=== PATIENT | female | born 1955 | race Caucasian/White ===

== ENCOUNTER 2016-04-01 11:24 | Inpatient (IN) ==
--- NOTE | 2016-04-01 11:36 | Emergency Department Note ---
Disposition Clinical Impression: Hypoxemia, History of hysterectomy for malignancy, Headache, Pulmonary embolus Disposition: Admitted As Inpatient Referrals: Raymon Rogel MD [Primary Care Provider] - Forms: ED Satisfaction Letter General Adult HPI - General Chief complaint: ED Shortness of Breath/Dyspnea Stated complaint: PARTHA, abd pain Time Seen by Provider: 04/01/16 11:35 Source: patient, family Limitations: no limitations - History of Present Illness HPI Narrative: 60-year-old female reports tot he Emergency department complaining of shortness of breath. She has had a cough runny nose and a sore throat as well. There is no history of coughing up blood leg swelling or pain or syncope. She describes chest pain when breathing in and out. The patient has a known history of malignancy/uterine, status post hysterectomy, as well as PE. She takes Xarelto. There is no history of bleeding. There is no history of fall injury or acute back pain. The patient describes abdominal pain which is generalized, there has been no vomiting or diarrhea. Definitively no trauma. She also complains of a headache, she has a history of chronic recurrent cephalgia. No neck stiffness rash or fever reported. No confusion or convulsions, no trouble walking talking hearing seeing or speaking. The patient denies any personal history of CAD CHF COPD or asthma. The patient does not usually require oxygen. She has become progressively more short of breath over the last several days. Onset (ago): day(s) Pain Scale: 10 - Related Data Home Medications Medication Instructions Recorded Confirmed Metoprolol [Lopressor] 50 mg PO BID 11/30/14 01/29/16 TraZODone 50 mg PO HS 11/30/14 01/29/16 Citalopram [CeleXA] 20 mg PO DAILY 06/05/15 01/29/16 Previous Rx's Medication Instructions Recorded Acetaminophen/Butalbital/Caffe 1 each PO Q6HR PRN #30 tablet 01/29/16 [Fioricet] Handicap Placard 1 each .ROUTE DAILY #1 each 01/29/16 Rivaroxaban [Xarelto] 1 tab PO HS #30 tablet 01/29/16 Allergies Allergy/AdvReac Type Severity Reaction Status Date / Time No Known Allergies Allergy Verified 04/01/16 11:33 All systems ED: reviewed and negative except as stated. 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 Absent: scleral icterus, conjunctival injection, nystagmus, miosis, mydriasis - ENT ENT exam: normal exam, normal oropharynx, mucous membranes moist, TM's normal bilaterally, normal external ear exam - Neck Neck exam: Present: normal inspection, full ROM, trachea midline - Chest Chest inspection: Present: symmetric chest wall rise. Absent: tenderness - Respiratory Respiratory exam: Present: wheezes, prolonged expiratory phase. Absent: respiratory distress, accessory muscle use - Cardiovascular Cardiovascular exam: Present: regular rate, normal rhythm - Abdominal Exam Abdominal exam: Present: soft, Non-Tender. Absent: tenderness, distention, guarding, rebound, rigidity, normal bowel sounds, pulsatile mass - Extremities Exam Extremities exam: Present: normal inspection, full ROM, normal capillary refill. Absent: tenderness, pedal edema, joint swelling, calf tenderness - Expanded Lower Extremity Exam Lower leg exam: Absent: Homans' sign Neurovascular/Tendon exam: Present: normal capillary refill. Absent: motor deficit, sensory deficit, tendon deficit - Back Exam Back exam: Present: normal inspection, full ROM. Absent: tenderness, CVA tenderness (R), CVA tenderness (L), vertebral tenderness - Neurological Exam Neurological exam: Present: alert, oriented X3, CN II-XII intact. Absent: motor sensory deficit - Psychiatric Psychiatric exam: Present: normal affect - Skin Skin exam: Present: warm, dry, intact, normal color. Absent: rash, cyanosis, diaphoresis, erythema, pallor, mottled Course Vital Signs Temperature 98.0 F 04/01/16 11:29 Pulse Rate 82 04/01/16 11:29 Respiratory Rate 22 04/01/16 11:29 Blood Pressure 145/43 04/01/16 11:29 O2 Sat by Pulse Oximetry 89 L 04/01/16 11:29 Temperature 98.0 F 04/01/16 11:29 Pulse Rate 66 04/01/16 12:00 Respiratory Rate 18 04/01/16 12:00 Blood Pressure 109/70 04/01/16 12:00 O2 Sat by Pulse Oximetry 97 04/01/16 12:00 Oxygen Delivery Oxygen Delivery Nasal Cannula Medical Decision Making - MDM Narrative Medical decision making narrative: The patient does not require oxygen, she was initial O2 sat of 89%. The patient was giving a breathing treatment, her oxygen saturation did rise but remained persistently in the 91-93% range. Solu-Medrol Levaquin and a second DuoNeb were ordered. The radiologist called and describes what could be a small PE. The patient is currently taking anticoagulant medication, she has not coughed up any blood. Based on her underlying comorbidities including malignancy, acute hypoxemia, persistent wheezing that is posttreatment, and possible PE, I thought the patient sustained a hospital be evaluated and treated further. I discussed the case with the hospitalist fiberglass insulation installer. - Lab Data Lab results reviewed: Yes I reviewed the patient's lab results. Result diagrams: 04/01/16 11:50 04/01/16 11:50 Lab Results 04/01/16 04/01/16 04/01/16 Range/Units 11:50 11:50 11:50 WBC 9.9 (4.3-11.1) K/mcL RBC 5.03 H (3.82-4.97) M/mcL Hgb 16.2 H (11.5-15.4) g/dL Hct 48.1 H (35.3-44.9) % MCV 95.6 (83.0-100.0) fL MCH 32.2 (28.0-33.3) pg MCHC 33.7 (31.6-35.5) g/dL RDW 12.8 (11.5-14.5) % Plt Count 228 (140-400) K/mcL MPV 9.3 L (9.4-12.4) fL Immature Gran % 0.5 (0-4) % Seg Neutrophils % 71.0 % Lymphocytes % 20.1 % Monocytes % 5.9 % Eosinophils % 2.2 % Basophils % 0.3 % Neutrophils # 7.0 (1.6-8.9) K/mcL Lymphocytes # 2.0 (0.6-4.6) K/mcL Monocytes # 0.6 (0.0-1.3) K/mcL Eosinophils # 0.2 (0.0-0.6) K/mcL Basophils # 0.0 (0.0-0.2) K/mcL PT 12.3 H (9.4-12.1) Seconds INR 1.1 APTT 29.4 (26.0-36.0) Seconds D-Dimer 361 (0-500) ng/mLFEU Sodium 138 (136-145) mEq/L Potassium 4.1 (3.5-4.5) mEq/L Chloride 103 (98-109) mEq/L Carbon Dioxide 25 (19-29) mEq/L BUN 12 (7-20) mg/dL Creatinine 0.79 (0.57-1.11) mg/dL Est GFR ( Amer) > 60 (> 60) Est GFR (Non-Af Amer) > 60 (> 60) BUN/Creatinine Ratio 15 (6-26) Glucose 115 H (70-99) mg/dL Calculated Osmolality 287 (280-300) Lactic Acid (0.5-2.2) mmol/L Calcium 9.1 (8.6-10.8) mg/dL Troponin I (0-0.03) ng/mL C-Reactive Protein 56 H (Less than 5) mg/L B-Natriuretic Peptide (0-100) pg/mL Lipase 21 (8-78) Units/L 04/01/16 04/01/16 04/01/16 Range/Units 11:50 11:50 11:50 WBC (4.3-11.1) K/mcL RBC (3.82-4.97) M/mcL Hgb (11.5-15.4) g/dL Hct (35.3-44.9) % MCV (83.0-100.0) fL MCH (28.0-33.3) pg MCHC (31.6-35.5) g/dL RDW (11.5-14.5) % Plt Count (140-400) K/mcL MPV (9.4-12.4) fL Immature Gran % (0-4) % Seg Neutrophils % % Lymphocytes % % Monocytes % % Eosinophils % % Basophils % % Neutrophils # (1.6-8.9) K/mcL Lymphocytes # (0.6-4.6) K/mcL Monocytes # (0.0-1.3) K/mcL Eosinophils # (0.0-0.6) K/mcL Basophils # (0.0-0.2) K/mcL PT (9.4-12.1) Seconds INR APTT (26.0-36.0) Seconds D-Dimer (0-500) ng/mLFEU Sodium (136-145) mEq/L Potassium (3.5-4.5) mEq/L Chloride (98-109) mEq/L Carbon Dioxide (19-29) mEq/L BUN (7-20) mg/dL Creatinine (0.57-1.11) mg/dL Est GFR ( Amer) (> 60) Est GFR (Non-Af Amer) (> 60) BUN/Creatinine Ratio (6-26) Glucose (70-99) mg/dL Calculated Osmolality (280-300) Lactic Acid 2.0 (0.5-2.2) mmol/L Calcium (8.6-10.8) mg/dL Troponin I 0.00 (0-0.03) ng/mL C-Reactive Protein (Less than 5) mg/L B-Natriuretic Peptide 24 (0-100) pg/mL Lipase (8-78) Units/L - Radiology Data Radiology results reviewed: Yes I reviewed the patient's radiology results.
[2016-04-01] MEDS ORDERED: methylPREDNISolone 125 MG/2 ML VIAL IVP ONE (11:45)
[2016-04-01] MEDS ORDERED: Ipratropium/Albuterol Neb 3 ML IH ONE ×2 (11:45→13:59)
[2016-04-01 12:03] LABS: Basophils % 0.3 %; Eosinophils # 0.2 K/mcL (0.0-0.6); Eosinophils % 2.2 %; Hematocrit 48.1 % (35.3-44.9); Hemoglobin 16.2 g/dL (11.5-15.4); Immature Granulocytes % 0.5 % (0-4); Lymphocytes % 20.1 %; Mean Corpuscular HGB Conc 33.7 g/dL (31.6-35.5); Mean Corpuscular Hemoglobin 32.2 pg (28.0-33.3); Mean Corpuscular Volume 95.6 fL (83.0-100.0); Mean Platelet Volume 9.3 fL (9.4-12.4); Monocytes # 0.6 K/mcL (0.0-1.3); Monocytes % 5.9 %; Platelet Count 228 K/mcL (140-400); Red Blood Count 5.03 M/mcL (3.82-4.97); Red Cell Distribution Width 12.8 % (11.5-14.5)
[2016-04-01 12:11] LABS: INR 1.1; Prothrombin Time 12.3 Seconds (9.4-12.1)
[2016-04-01 12:14] LABS: Activated Partial Thrombo Time 29.4 Seconds (26.0-36.0)
[2016-04-01 12:16] LABS: BUN/Creatinine Ratio 15 (6-26); Blood Urea Nitrogen 12 mg/dL (7-20); C-Reactive Protein 56 mg/L (Less than 5); Calcium 9.1 mg/dL (8.6-10.8); Carbon Dioxide 25 mEq/L (19-29); Chloride 103 mEq/L (98-109); Glucose 115 mg/dL (70-99); Lipase 21 Units/L (8-78); Osmolality,Calculated 287 (280-300); Potassium 4.1 mEq/L (3.5-4.5); Sodium 138 mEq/L (136-145); eGFR For African Americans > 60 (> 60); eGFR For Non-African Americans > 60 (> 60)
[2016-04-01] MEDS ORDERED: Levofloxacin 750 MG/150 ML 750 MG/150 ML BAG IVPB ONE (13:59)
--- NOTE | 2016-04-01 14:21 | Internal Med History&Physical ---
Date of Encounter: 04/01/16 Time of Encounter: 14:18 Assessment and Plan (1) Pulmonary embolus Current visit: Yes Status: Acute Patient with clinical and tomographic findings consistent with pulmonary embolism. She has been on chronic anticoagulation with xarelto, according to the patient, she is compliant with medications at home. Additionally, she has an underlying COPD with hypoxemia and she is a chronic active smoker. She has a history of malignancy for which she received treatment and she also had a pulmonary embolism back in 2011, she has been on anticoagulations since then. Will admit the patient for further management, we will continue with oxygen therapy. Will give anticoagulation, for now we will switch to full dose of Lovenox. We will obtain an echocardiogram for evaluation of right ventricular function. The patient is morbidly obese, she states that he snores loudly, she has never received any workup for sleep apnea, I would not be surprised if there is a component of obstructive sleep apnea as well. Smoking cessation has been strongly advised, will provide nicotine replacement therapy. The plan of care was discussed in detail with the patient. D/W patient. Qualifiers: Pulmonary embolism type: other Chronicity: acute Acute cor pulmonale presence: without acute cor pulmonale Qualified Code(s): I26.99 - Other pulmonary embolism without acute cor pulmonale (2) Hypoxemia Current visit: Yes Status: Acute (3) COPD (chronic obstructive pulmonary disease) Current visit: No Status: Acute Qualifiers: COPD type: unspecified COPD Qualified Code(s): J44.9 - Chronic obstructive pulmonary disease, unspecified (4) History of hysterectomy for malignancy Current visit: Yes Status: Acute Internal Medicine - H&P: HPI Chief complaint: Back pain, shortness of breath. Admitted From: Emergency Dept Plans for Post Hospital Care: Home History of present illness: Ms. Bashir is a 60 year old female with past medical history of pulmonary embolism back in 2011, history of uterine cancer status post treatment without evidence of disease, chronic active smoker, COPD on long-term oxygen therapy. Patient states that since 2 days before [place] has been complaining of persistent back pain associated with shortness of breath and dry cough. The patient presented to our emergency department today because she thought she may have a blood clot in her lungs. She denies fever, chills, chest pain, rash, loss of consciousness, dysuria. The patient is on chronic anticoagulation with xarelto. Initial workup in the emergency department was significant for a CT angios of the chest consistent with a small pulmonary embolism. Additionally, her oxygen saturation was 89% upon admission. When I evaluated the patient on a chest pain she was feeling short of breath and hypoxia ablation was 91% with subsequent oxygen via nasal cannula. The patient has been admitted for further management and workup. She denies melena, hemoptysis, any signs of bleeding. Patient denies history of recent travel, leg swelling, trauma, hospitalizations. Past Med Surg Social Fam HX - Past Medical History Medical history: cancer, COPD, DVT, GI bleed, hypertension, pulmonary embolus, other Psychiatric history: depression - Past Surgical History Surgical History: hysterectomy, other - Social History Smoking Status: Current some day smoker Smokeless Tobacco Status: No Alcohol use: none Drug use: none - Family History Mother Hx Family Cardiac Disorders: Yes (HYPERTENSION.) Internal Medicine - H&P: Meds Metoprolol [Lopressor] 50 mg PO BID 11/30/14 [History] TraZODone 50 mg PO HS 11/30/14 [History] Citalopram [CeleXA] 20 mg PO DAILY 06/05/15 [History] Acetaminophen/Butalbital/Caffe [Fioricet] 1 each PO Q6HR PRN #30 tablet [Rx] Handicap Placard 1 each .ROUTE DAILY #1 each 01/29/16 [Rx] Rivaroxaban [Xarelto] 1 tab PO HS #30 tablet 01/29/16 [Rx] Allergies No Known Allergies Allergy (Verified 04/01/16 11:33) All Systems PM: A 10-system review of systems was performed and is negative for pertinent findings except as documented above in the HPI. - Constitutional Constitutional: as per HPI, no chills, no fever(s), no night sweats - EENT Eyes: as per HPI, no change in vision, no discharge, no pain, no photophobia Ears: as per HPI, no ear discharge, no ear pain, no tinnitus Nose, mouth and throat: as per HPI, no dysphagia, no nasal discharge, no neck pain, no sore throat - Breasts Breasts: as per HPI - Cardiovascular Cardiovascular ROS IM: as per HPI, dyspnea on exertion, no chest pain, no diaphoresis, no dyspnea, no lightheadedness, no palpitations, no syncope - Respiratory Respiratory: as per HPI, cough, dyspnea, dyspnea on exertion, no wheezing, no excessive phlegm production - Gastrointestinal Gastrointestinal: as per HPI, no abdominal pain, no diarrhea, no hematemesis, no hematochezia, no melena, no nausea, no vomiting - Genitourinary Genitourinary: as per HPI, no change in urinary stream, no dysuria, no flank pain, no hematuria Menstruation: as per HPI - Musculoskeletal Musculoskeletal ROS IM: as per HPI, no numbness, no tingling - Integumentary Integumentary IM: as per HPI, no rash, no unusual bruising - Neurological Neurological ROS: as per HPI, no confusion, no convulsions, no focal weakness, no numbness, no tingling, no tremor(s) - Psychiatric Psychiatric: as per HPI - Endocrine Endocrine IM: as per HPI - Hematologic/Lymphatic Hematologic/Lymphatic: as per HPI, no easy bruising - Allergic/Immunologic Allergic/Immunologic: as per HPI - Constitutional Vitals: Temp Pulse Resp BP Pulse Ox 98.0 F 66 18 109/70 97 04/01/16 11:29 04/01/16 12:00 04/01/16 12:00 04/01/16 12:00 04/01/16 12:00 General appearance: Present: mild distress, A&O X 3, obese - Head Head exam: Present: atraumatic, normocephalic - Eye Eye exam: Present: PERRL, conjuntiva pink, sclera anicteric Pupils: Present: PERRL - Neck Neck exam general surgery: Present: supple, trachea midline. Absent: lymphadenopathy - Respiratory Respiratory exam: Present: decreased breath sounds, rhonchi. Absent: accessory muscle use, rales, wheezes - Cardiovascular Cardiovascular exam: Present: RRR, +S1, +S2. Absent: diastolic murmur, gallop, rubs, systolic murmur - GI/Abdominal GI/Abdominal exam: Present: normal bowel sounds, soft, no peritoneal signs. Absent: distended, tenderness - Extremities Exam Extremities exam: Present: warm, radial pulses palpable and symetrical. Absent : calf tenderness, cyanotic, pedal edema - Neurological Exam Neurological exam: Present: CN II-XII intact, oriented X3, no focal deficits. Absent: pronater drift, facial droop, speech deficit - Skin Skin exam: Present: dry, intact Internal Med - H&P Results - Labs CBC & Chem 7: 04/01/16 11:50 04/01/16 11:50 Labs: Short CBC 04/01/16 Range/Units 11:50 WBC 9.9 (4.3-11.1) K/mcL Hgb 16.2 H (11.5-15.4) g/dL Hct 48.1 H (35.3-44.9) % Plt Count 228 (140-400) K/mcL Neutrophils # 7.0 (1.6-8.9) K/mcL BMP 04/01/16 11:50 Sodium 138 Potassium 4.1 Chloride 103 Carbon Dioxide 25 BUN 12 Creatinine 0.79 Glucose 115 H Calcium 9.1 Cardiac Enzymes 04/01/16 Range/Units 11:50 Troponin I 0.00 (0-0.03) ng/mL - Impressions ITS Impressions Chest CTA 04/01/16 11:46 IMPRESSION: No large or central pulmonary embolism. Question of a small PE within a left lower lobe subsegmental pulmonary artery. Results of this examination were verbally communicated to Dr. Kaplan at 1:55 p.m. on 04/01/2016. D/ / 04/01/2016 13:54:33 Gregory Higginbotham MD / [facility] Interpreting Provider: Gregory Higginbotham MD Head CT 04/01/16 11:50 IMPRESSION: No acute intracranial abnormality. D/ / Gustavo Hill MD / Gustavo Hill MD Interpreting Provider: Gustavo Hill MD
[2016-04-01] MEDS ORDERED: Naloxone 0.4 MG/ML INJ IVP PRN (14:27)
[2016-04-01] MEDS ORDERED: Ondansetron 4 MG/2 ML VIAL IVP PRN (14:27)
[2016-04-01] MEDS ORDERED: Albuterol 2.5 MG/3 ML NEBULIZER IH PRN (14:27)
[2016-04-01] MEDS ORDERED: *HR* HYDROcodone/Acet 5/325 mg TABLET PO PRN (14:27)
[2016-04-01 15:16] LABS: Bilirubin,Urine Negative (Negative); Blood,Urine Negative (Negative); Clarity,Urine Clear (Clear); Color,Urine Yellow (Yellow); Glucose,Urine (UA) Normal (Normal); Ketones,Urine Negative (Negative); Leukocyte Esterase,Urine Negative (Negative); Nitrite,Urine Negative (Negative); Protein,Urine Negative (Neg-Trace); Specific Gravity,Urine > 1.030 (1.010-1.025); Urobilinogen,Urine Normal (Normal)
[2016-04-01] MEDS: Nicotine 21 MG PATCH.TD24 TD SCH (15:50)
[2016-04-01] MEDS: *HR* Morphine 2 MG/ML SYRINGE IVP PRN ×2 (15:50→20:11)
[2016-04-01] MEDS: Ipratropium/Albuterol Neb 3 ML IH SCH ×2 (16:23→22:12)
[2016-04-01] MEDS: predniSONE 20 MG TABLET PO SCH (18:25)
[2016-04-01] MEDS: *HR* Enoxaparin 100 MG/ML SYRINGE SQ SCH (18:26)
[2016-04-01] MEDS: traZODone 50 MG TABLET PO SCH (20:11)
[2016-04-01] MEDS: Famotidine 20 MG TABLET PO SCH (20:11)
[2016-04-01] MEDS: Lactulose Oral Soln 20 GM/30 ML UDC PO SCH (20:12)
[2016-04-02] MEDS: *HR* Morphine 2 MG/ML SYRINGE IVP PRN ×4 (02:10→21:00)
[2016-04-02] MEDS: Ipratropium/Albuterol Neb 3 ML IH SCH ×4 (05:11→22:15)
[2016-04-02] MEDS: *HR* Enoxaparin 100 MG/ML SYRINGE SQ SCH ×2 (05:18→17:39)
[2016-04-02 07:18] LABS: Basophils % 0.2 %; Hematocrit 43.6 % (35.3-44.9); Hemoglobin 14.8 g/dL (11.5-15.4); Immature Granulocytes % 0.5 % (0-4); Lymphocytes # 1.1 K/mcL (0.6-4.6); Lymphocytes % 10.2 %; Mean Corpuscular HGB Conc 33.9 g/dL (31.6-35.5); Mean Corpuscular Hemoglobin 32.8 pg (28.0-33.3); Mean Corpuscular Volume 96.7 fL (83.0-100.0); Mean Platelet Volume 9.6 fL (9.4-12.4); Monocytes # 0.5 K/mcL (0.0-1.3); Monocytes % 4.8 %; Neutrophils # 9.2 K/mcL (1.6-8.9); Platelet Count 235 K/mcL (140-400); Red Blood Count 4.51 M/mcL (3.82-4.97); Red Cell Distribution Width 12.7 % (11.5-14.5); Segmented Neutrophils % 84.3 %
[2016-04-02 07:19] LABS: Prothrombin Time 11.2 Seconds (9.4-12.1)
[2016-04-02 07:22] LABS: Activated Partial Thrombo Time 30.7 Seconds (26.0-36.0)
[2016-04-02 07:41] LABS: Alanine Aminotransferase 18 Units/L (0-55); Albumin 3.2 g/dL (3.5-5.0); Albumin/Globulin Ratio 0.8 (1.1-2.2); Alkaline Phosphatase 85 Units/L (38-126); Aspartate Amino Transferase 11 Units/L (5-34); BUN/Creatinine Ratio 19 (6-26); Bilirubin,Total 0.3 mg/dL (0.2-1.2); Blood Urea Nitrogen 16 mg/dL (7-20); Calcium 9.3 mg/dL (8.6-10.8); Carbon Dioxide 19 mEq/L (19-29); Chloride 106 mEq/L (98-109); Chol/HDL Ratio 4.1 (0-4.9); Cholesterol 168 mg/dL (< 200); Globulin 3.9 g/dL (2.4-3.5); Glucose 197 mg/dL (70-99); HDL Cholesterol 41 mg/dL (40-59); LDL Cholesterol,Calculated 91 mg/dL (0-99); Magnesium 1.9 mg/dL (1.6-2.6); Osmolality,Calculated 293 (280-300); Potassium 4.1 mEq/L (3.5-4.5); Sodium 138 mEq/L (136-145); Total Protein 7.1 g/dL (6.0-8.3); Triglycerides 180 mg/dL (< 150); eGFR For African Americans > 60 (> 60); eGFR For Non-African Americans > 60 (> 60)
[2016-04-02] MEDS: Levofloxacin 750 MG/150 ML 750 MG/150 ML BAG IVPB SCH ×2 (08:28→08:49)
[2016-04-02] MEDS: Famotidine 20 MG TABLET PO SCH ×2 (08:29→21:01)
[2016-04-02] MEDS: predniSONE 20 MG TABLET PO SCH (08:29)
[2016-04-02] MEDS: Nicotine 21 MG PATCH.TD24 TD SCH (08:30)
[2016-04-02] MEDS: Lactulose Oral Soln 20 GM/30 ML UDC PO SCH ×2 (08:31→21:01)
[2016-04-02] MEDS: Azithromycin 500 MG in D5% in Water 250 ML IVPB SCH (12:05)
--- NOTE | 2016-04-02 16:45 | Internal Med Progress Note ---
Date of Encounter: 04/02/16 Time of Encounter: 11:45 - Assessment and plan (1) Pulmonary embolism Current Visit: No Status: Resolved Assessment and plan: Was on Xarelto and is compliant. Dose recently decreased. Continue current anticoagulant. Will need to start new PO med (? Xarelto at higher dose). Qualifiers: Pulmonary embolism type: other Chronicity: acute Acute cor pulmonale presence: without acute cor pulmonale Qualified Code(s): I26.99 - Other pulmonary embolism without acute cor pulmonale (2) Acute respiratory failure with hypoxemia Current Visit: No Status: Acute Assessment and plan: Continue oxygen supplementation. (3) COPD (chronic obstructive pulmonary disease) Current Visit: No Status: Acute Assessment and plan: Continue abx, steroids, aerosols. Qualifiers: COPD type: COPD with acute exacerbation Qualified Code(s): J44.1 - Chronic obstructive pulmonary disease with (acute) exacerbation (4) Hypertension Current Visit: Yes Status: Acute Assessment and plan: Continue home meds. Qualifiers: Hypertension type: essential hypertension Qualified Code(s): I10 - Essential (primary) hypertension - Subjective Interval history: Ms. Bashir is currently admitted for presumed recurrent acute PE and acute exac COPD. She remains moderate to high risk due to the potential of worsening cardiac and pulmonary status. Ms. Bashir is resting comfortably at this time. Continues to have discomfort in lower L chest. Dyspnea present. Coughing a lot - congested. No GI symptoms. No new issues at this time. - Constitutional Vitals: Temp Pulse Resp BP Pulse Ox 98.1 F 92 16 127/79 98 04/02/16 15:35 04/02/16 15:35 04/02/16 16:22 04/02/16 15:35 04/02/16 16:22 General appearance: Present: mild distress, A&O X 3, obese, answers questions appropriately - Head Head exam: Present: normocephalic - Eye Eye exam: Present: EOMI, conjuntiva pink - ENT ENT exam: Present: mucous membranes moist - Respiratory Respiratory exam: Present: rhonchi, wheezes - Cardiovascular Cardiovascular exam: Present: distant heart sounds, RRR. Absent: tachycardia - GI/Abdominal GI/Abdominal exam: Present: soft. Absent: mass, tenderness - Extremities Exam Extremities exam: Present: pedal edema, warm - Neurological Exam Neurological exam: Present: alert, oriented X3, no focal deficits - Skin Skin exam: Present: dry, normal color, warm. Absent: rash Internal Medicine: Result - Labs CBC & Chem 7: 04/02/16 06:56 04/02/16 06:36 Labs: Short CBC 04/02/16 Range/Units 06:56 WBC 10.9 (4.3-11.1) K/mcL Hgb 14.8 (11.5-15.4) g/dL Hct 43.6 (35.3-44.9) % Plt Count 235 (140-400) K/mcL Neutrophils # 9.2 H (1.6-8.9) K/mcL BMP 04/02/16 06:36 Sodium 138 Potassium 4.1 Chloride 106 Carbon Dioxide 19 BUN 16 Creatinine 0.83 Glucose 197 H Calcium 9.3 Cardiac Enzymes 04/01/16 04/01/16 Range/Units 16:38 21:49 Troponin I 0.00 0.00 (0-0.03) ng/mL Liver Function 04/02/16 Range/Units 06:36 Total Bilirubin 0.3 (0.2-1.2) mg/dL AST 11 (5-34) Units/L ALT 18 (0-55) Units/L Alkaline Phosphatase 85 (38-126) Units/L Albumin 3.2 L (3.5-5.0) g/dL - ABG Interpretation ABG results: PT/INR, D-dimer PT 11.2 Seconds (9.4-12.1) 04/02/16 06:36 D-Dimer 361 ng/mLFEU (0-500) 04/01/16 11:50 Consult Discharge Plan - Plan Referrals: Raymon Rogel MD [Primary Care Provider] -
[2016-04-02] MEDS: methylPREDNISolone 125 MG/2 ML VIAL IVP SCH ×2 (17:39→23:04)
[2016-04-02] MEDS ORDERED: Melatonin 3 MG TABLET PO ONE (20:36)
[2016-04-02] MEDS: traZODone 50 MG TABLET PO SCH (21:01)
[2016-04-03] MEDS: Ipratropium/Albuterol Neb 3 ML IH SCH ×4 (04:23→22:05)
[2016-04-03 05:26] LABS: Hematocrit 45.4 % (35.3-44.9); Hemoglobin 14.9 g/dL (11.5-15.4); Mean Corpuscular HGB Conc 32.8 g/dL (31.6-35.5); Mean Corpuscular Hemoglobin 32.2 pg (28.0-33.3); Mean Corpuscular Volume 98.1 fL (83.0-100.0); Mean Platelet Volume 9.8 fL (9.4-12.4); Platelet Count 251 K/mcL (140-400); Red Blood Count 4.63 M/mcL (3.82-4.97); Red Cell Distribution Width 12.6 % (11.5-14.5)
[2016-04-03 05:37] LABS: BUN/Creatinine Ratio 30 (6-26); Blood Urea Nitrogen 24 mg/dL (7-20); Calcium 9.2 mg/dL (8.6-10.8); Carbon Dioxide 27 mEq/L (19-29); Chloride 105 mEq/L (98-109); Glucose 143 mg/dL (70-99); Magnesium 2.4 mg/dL (1.6-2.6); Osmolality,Calculated 297 (280-300); Sodium 140 mEq/L (136-145); eGFR For African Americans > 60 (> 60); eGFR For Non-African Americans > 60 (> 60)
[2016-04-03] MEDS: *HR* Enoxaparin 100 MG/ML SYRINGE SQ SCH ×2 (05:53→16:58)
[2016-04-03 06:07] LABS: Potassium 5.1 mEq/L (3.5-4.5)
[2016-04-03] MEDS: *HR* Morphine 2 MG/ML SYRINGE IVP PRN ×4 (07:43→21:19)
--- NOTE | 2016-04-03 09:26 | ECHO - Doppler Report ---
Echocardiogram Name: Maylein Bashir Date of Study: 04/02/2016 Date: 1955 Ht: 63.0 in Medical Record#: [id number] Age: 60 Wt: 220.0 lb Gender: Female BSA: 2.01 Order #: [id number] Location: [facility] Room #: [id number] Reading Physician: John Boston MD, [facility] Senior Water/Wastewater Engineer: OVI Fontana, S Ordering Physician: Jose Teixeira DO Primary Physician: Raymon Rogel MD Indications: recurrent PE Impressions: Normal left ventricular size and systolic function, LVEF 65-70%. Moderate left ventricular diastolic dysfunction. Right ventricle is suboptimally visualized. It appears mildly dilated in some views. RV systolic function is normal. Mild-moderately dilated left atrium. No significant valvular dysfunction. Unable to estimate RVSP due to inadequate TR jet. Left Ventricular Wall Motion: Rest Echo Findings All wall segments showed normal motion. Findings: Study Quality * Suboptimal echo windows. ECG Findings * Normal sinus rhythm. Left Ventricle * Normal left ventricular size and systolic function, LVEF 65-70%. * Normal LV wall thickness. * Moderate left ventricular diastolic dysfunction. Right Ventricle * Right ventricle is suboptimally visualized. It appears mildly dilated in some views. RV systolic function is normal. Left Atrium * Mild-moderately dilated left atrium. Right Atrium * Normal right atrial size. Aorta * Normally sized aortic root. Pericardium * There is no pericardial effusion present. IVC * The IVC is not dilated. Aortic Valve * Aortic valve not well visualized. Appears trileaflet. * No aortic stenosis. * No aortic regurgitation. Mitral Valve * Normal mitral valve structure. * No mitral stenosis. * Trace mitral regurgitation. Tricuspid Valve * Tricuspid valve not well visualized. * No tricuspid stenosis. * Trace tricuspid regurgitation. * Unable to estimate RVSP due to inadequate TR jet. Pulmonic Valve * Pulmonic valve not well visualized. * No pulmonic stenosis. * Trace pulmonic regurgitation. History Hypertension History of Smoking Years 48 Packs 0.2 06/05/2015 a Previous Echo was performed. Measurements: BP: 126/ 69 2D Normal Values RVIDd: 3.60 cm IVSd: 1.00 cm 0.6 - 1.0 cm LVIDd: 4.50 cm 3.7 - 5.6 cm LVPWd: 1.00 cm 0.6 - 1.1 cm LVIDs: 2.50 cm 1.5 - 3.6 cm AO: 2.80 cm < 4.0 cm LA volume: 76 Mitral Valve Peak E:1.11 m/sec Peak A:1.28 m/sec E/A Ratio:0.9 Updated by John Boston MD, [facility] on 04/03/2016 9:16:49 AM electronically signed on 04/03/2016 9:22:31 AM with status of Final Wall Motion Cantor: 1=Normal, 2=Hypokinesis, 3=Akinesis, 4=Dyskinesis, 5=Aneurysmal, 6=Hyperkinetic, X=Not Visualized (Blank)=Missing
[2016-04-03] MEDS: Famotidine 20 MG TABLET PO SCH ×2 (12:03→20:47)
[2016-04-03] MEDS: Nicotine 21 MG PATCH.TD24 TD SCH (12:04)
[2016-04-03] MEDS: methylPREDNISolone 125 MG/2 ML VIAL IVP SCH ×2 (12:04→16:58)
[2016-04-03] MEDS: Lactulose Oral Soln 20 GM/30 ML UDC PO SCH ×2 (12:05→20:46)
[2016-04-03] MEDS: Azithromycin 500 MG in D5% in Water 250 ML IVPB SCH (13:55)
--- NOTE | 2016-04-03 18:17 | Internal Med Progress Note ---
Date of Encounter: 04/03/16 Time of Encounter: 10:00 - Assessment and plan (1) Pulmonary embolism Current Visit: No Status: Resolved Assessment and plan: Doing OK on IV heparin drip. Will plan on restarting PO Xarelto but anticipate will need heme consult. Qualifiers: Pulmonary embolism type: other Chronicity: acute Acute cor pulmonale presence: without acute cor pulmonale Qualified Code(s): I26.99 - Other pulmonary embolism without acute cor pulmonale (2) Acute respiratory failure with hypoxemia Current Visit: No Status: Acute Assessment and plan: Continue oxygen supplementation. (3) COPD (chronic obstructive pulmonary disease) Current Visit: No Status: Acute Assessment and plan: Doing better with aggressive pulmonary treatment. Qualifiers: COPD type: COPD with acute exacerbation Qualified Code(s): J44.1 - Chronic obstructive pulmonary disease with (acute) exacerbation (4) Hypertension Current Visit: Yes Status: Acute Assessment and plan: Continue home meds. Qualifiers: Hypertension type: essential hypertension Qualified Code(s): I10 - Essential (primary) hypertension - Subjective Interval history: Ms. Bashir is currently admitted for presumed recurrent acute PE and acute exac COPD. She remains moderate to high risk due to the potential of worsening cardiac and pulmonary status. Ms. Bashir slept better last night. She is still having pain in her left side but medicine helps. She is breathing better since yesterday. Denies GI symptoms. No fever or chills. - Constitutional Vitals: Temp Pulse Resp BP Pulse Ox 98.3 F 60 16 121/76 94 L 04/03/16 15:00 04/03/16 15:00 04/03/16 16:33 04/03/16 15:00 04/03/16 16:33 General appearance: Present: mild distress, A&O X 3, obese, answers questions appropriately - Head Head exam: Present: normocephalic - Eye Eye exam: Present: conjuntiva pink - ENT ENT exam: Present: mucous membranes moist - Respiratory Respiratory exam: Present: decreased breath sounds, CTAB - Cardiovascular Cardiovascular exam: Present: RRR. Absent: tachycardia - GI/Abdominal GI/Abdominal exam: Present: normal bowel sounds, soft, tenderness. Absent: mass - Extremities Exam Extremities exam: Present: warm. Absent: pedal edema - Neurological Exam Neurological exam: Present: alert, oriented X3 - Psychiatric Psychiatric exam: Present: normal affect, normal mood - Skin Skin exam: Present: warm. Absent: rash Internal Medicine: Result - Labs CBC & Chem 7: 04/03/16 04:50 04/03/16 04:50 Labs: Short CBC 04/03/16 Range/Units 04:50 WBC 13.4 H (4.3-11.1) K/mcL Hgb 14.9 (11.5-15.4) g/dL Hct 45.4 H (35.3-44.9) % Plt Count 251 (140-400) K/mcL BMP 04/03/16 04:50 Sodium 140 Potassium 5.1 H D Chloride 105 Carbon Dioxide 27 BUN 24 H Creatinine 0.80 Glucose 143 H Calcium 9.2 - ABG Interpretation ABG results: PT/INR, D-dimer PT 11.2 Seconds (9.4-12.1) 04/02/16 06:36 D-Dimer 361 ng/mLFEU (0-500) 04/01/16 11:50 Consult Discharge Plan - Plan Referrals: Raymon Rogel MD [Primary Care Provider] -
[2016-04-03] MEDS ORDERED: Melatonin 3 MG TABLET PO ONE (20:45)
[2016-04-03] MEDS: traZODone 50 MG TABLET PO SCH (20:47)
[2016-04-04] MEDS: methylPREDNISolone 125 MG/2 ML VIAL IVP SCH ×3 (00:20→16:08)
[2016-04-04] MEDS: *HR* Morphine 2 MG/ML SYRINGE IVP PRN ×5 (01:09→21:20)
[2016-04-04] MEDS: Ipratropium/Albuterol Neb 3 ML IH SCH ×4 (03:48→22:31)
[2016-04-04] MEDS: *HR* Enoxaparin 100 MG/ML SYRINGE SQ SCH (06:10)
[2016-04-04 06:38] LABS: BUN/Creatinine Ratio 26 (6-26); Blood Urea Nitrogen 21 mg/dL (7-20); Carbon Dioxide 22 mEq/L (19-29); Chloride 104 mEq/L (98-109); Glucose 153 mg/dL (70-99); Osmolality,Calculated 292 (280-300); Potassium 4.6 mEq/L (3.5-4.5); Sodium 138 mEq/L (136-145); eGFR For African Americans > 60 (> 60); eGFR For Non-African Americans > 60 (> 60)
[2016-04-04] MEDS: Famotidine 20 MG TABLET PO SCH ×2 (08:22→21:20)
[2016-04-04] MEDS: Lactulose Oral Soln 20 GM/30 ML UDC PO SCH ×2 (08:22→21:20)
[2016-04-04] MEDS: Nicotine 21 MG PATCH.TD24 TD SCH (08:23)
--- NOTE | 2016-04-04 09:23 | Electrocardiograph Report ---
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
[2016-04-04] MEDS: Azithromycin 500 MG in D5% in Water 250 ML IVPB SCH (10:55)
--- NOTE | 2016-04-04 13:11 | Internal Med Progress Note ---
<Justin Nunes - Last Filed: 04/04/16 13:20> Date of Encounter: 04/04/16 Time of Encounter: 10:00 - Assessment and plan (1) Pulmonary embolus Current Visit: Yes Status: Acute Assessment and plan: 60/ F with hx of Uterine cancer, PEs on Xarelto presented with chest pain and sob. CTA showed PE. Patient was started on heparin drip and transitioned to lovenox. Heme was consulted for recommendation on anticoagulation as patient did not want to be started on lovenox as outpatient treatment. [facility] recommended Apixaban 5mg BID. Patient will be transitioned off of heparin to Apixaban. Qualifiers: Pulmonary embolism type: other Chronicity: acute Acute cor pulmonale presence: without acute cor pulmonale Qualified Code(s): I26.99 - Other pulmonary embolism without acute cor pulmonale (2) Hypertension Current Visit: Yes Status: Acute Assessment and plan: Controlled. Continue home meds. Qualifiers: Hypertension type: essential hypertension Qualified Code(s): I10 - Essential (primary) hypertension (3) Acute respiratory failure with hypoxemia Current Visit: No Status: Acute Assessment and plan: Resolved. (4) COPD (chronic obstructive pulmonary disease) Current Visit: No Status: Acute Assessment and plan: Doing better with aggressive pulmonary treatment. Continue oxygen supplementation, duoneb, solumedrol and azithromycin. Qualifiers: COPD type: COPD with acute exacerbation Qualified Code(s): J44.1 - Chronic obstructive pulmonary disease with (acute) exacerbation - Subjective Interval history: Patient admitted to sob today, otherwise no new complaints. No acute overnight events. - Constitutional Vitals: Temp Pulse Resp BP Pulse Ox 98.1 F 57 18 124/68 94 L 04/04/16 07:00 04/04/16 07:00 04/04/16 11:14 04/04/16 07:00 04/04/16 11:14 General appearance: Present: mild distress, A&O X 3, obese, answers questions appropriately - Respiratory Respiratory exam: Present: CTAB. Absent: accessory muscle use, rales, rhonchi, wheezes - Cardiovascular Cardiovascular exam: Present: RRR, +S1, +S2. Absent: diastolic murmur, gallop, rubs, systolic murmur - GI/Abdominal GI/Abdominal exam: Present: normal bowel sounds, soft, no peritoneal signs. Absent: distended, tenderness - Extremities Exam Extremities exam: Present: warm, radial pulses palpable and symetrical. Absent : calf tenderness, cyanotic, pedal edema - Psychiatric Psychiatric exam: Absent: agitated, anxious Internal Medicine: Result - Labs CBC & Chem 7: 04/03/16 04:50 04/04/16 05:02 Labs: BMP 04/04/16 05:02 Sodium 138 Potassium 4.6 H Chloride 104 Carbon Dioxide 22 BUN 21 H Creatinine 0.82 Glucose 153 H Calcium 9.0 - ABG Interpretation ABG results: PT/INR, D-dimer PT 11.2 Seconds (9.4-12.1) 04/02/16 06:36 D-Dimer 361 ng/mLFEU (0-500) 04/01/16 11:50 Consult Discharge Plan - Plan Referrals: Raymon Rogel MD [Primary Care Provider] - <Jose Teixeira - Last Filed: 04/04/16 18:35> Date of Encounter: 04/04/16 - Assessment and plan (1) Pulmonary embolism Current Visit: No Status: Resolved Qualifiers: Pulmonary embolism type: other Chronicity: acute Acute cor pulmonale presence: without acute cor pulmonale Qualified Code(s): I26.99 - Other pulmonary embolism without acute cor pulmonale (2) Acute respiratory failure with hypoxemia Current Visit: No Status: Acute (3) COPD (chronic obstructive pulmonary disease) Current Visit: No Status: Acute Qualifiers: COPD type: COPD with acute exacerbation Qualified Code(s): J44.1 - Chronic obstructive pulmonary disease with (acute) exacerbation (4) Hypertension Current Visit: Yes Status: Acute Qualifiers: Hypertension type: essential hypertension Qualified Code(s): I10 - Essential (primary) hypertension - Constitutional Vitals: Temp Pulse Resp BP Pulse Ox 98.3 F 53 18 134/79 95 04/04/16 15:00 04/04/16 15:00 04/04/16 16:06 04/04/16 15:00 04/04/16 16:06 Internal Medicine: Result - Labs CBC & Chem 7: 04/03/16 04:50 04/04/16 05:02 Labs: BMP 04/04/16 05:02 Sodium 138 Potassium 4.6 H Chloride 104 Carbon Dioxide 22 BUN 21 H Creatinine 0.82 Glucose 153 H Calcium 9.0 - ABG Interpretation ABG results: PT/INR, D-dimer PT 11.2 Seconds (9.4-12.1) 04/02/16 06:36 D-Dimer 361 ng/mLFEU (0-500) 04/01/16 11:50 - Attending Attestation I examined this patient and my medical decision-making was reviewed with the Resident Physician. I agree with the documented findings, disposition and treatment plan as described except to the extent set forth below. Ms. Bashir is currently admitted for acute exac COPD and acute PE. She remains moderate to high risk due to potential for respiratory decompensation. Ms. Bashir just had a large bowel movement and is walking to bathroom with less dyspnea. Less CP now. No cough. No diarrhea. Exam Alert. Comfortable Heart reg Lungs diminished. No edema I/P 1. Acute PE 2. Acute exac COPD Further diagnoses and plan as above.
[2016-04-04] MEDS: APIXABAN 5 MG TABLET PO SCH ×2 (16:56→21:20)
--- NOTE | 2016-04-04 18:08 | Oncology Inp Consult Note ---
Date of Encounter: 04/04/16 Time of Encounter: 12:00 Assessment and Plan (1) Pulmonary embolus Status: Acute Assessment and plan: The Patient Is Compliant Xarelto, Was Symptomatic. She Has Fairly Improved Currently Taking Lovenox We Discussed Anticoagulation Options of Continuing Care Weight Heparin Which Patient Does Not Want to Do at Home. Alternatively she can be started on eliquis BID. She had hx GI bleed underwent colonoscopy by Dr Montana and anticoag dose was subsequently reduced. She denies any bleeding issues currently. Uterine cancer early stage s/p surgery in without any recurrence in scans in 08/16 Echo report reviewed mild LA dil, no clots, nl LVEF Plan of care discussed with her in detail. Imaging data and lab works reviewed with patient. Qualifiers: Pulmonary embolism type: other Chronicity: acute Acute cor pulmonale presence: without acute cor pulmonale Qualified Code(s): I26.99 - Other pulmonary embolism without acute cor pulmonale - Data of Consult Requesting Physician: Jose Teixeira DO Primary Care Provider: Raymon Rogel MD - Consult Narrative Reason for consult: pe History of present illness: Ms. Bashir is a 60 year old female with medical history significant for history of DVT, history of pulmonary embolism, history of uterine cancer status post a complete hysterectomy in 2013 in remission, patient was initiated on Coumadin which she did not want to continue severely switched to Xarelto. Patient developed a clot in her Xarelto was dose reduced. She was then put on regular doses Xarelto patient reports compliance with that until recently when she developed chest pain and cough. She reports cold like symptoms and congestion for a week or so ago. She otherwise reports compliance with Xarelto she might have taken a tablet different time. Shortness of breath had improved with oxygen supplementation. 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 Her CT scan of the chest from 12:2015 it showed a large central the patient has a small pulmonary embolism within the left lower lobe subsegmental pulmonary artery. CT scan of the abdomen from August 2015 did not show any recurrence. Patient denies any history of easy bruising or bleeding. 14 point review of systems is otherwise negative. Past Med Surg Social Fam HX - Past Medical History Medical history: cancer, COPD, DVT, GI bleed, hypertension, pulmonary embolus, other Psychiatric history: depression - Past Surgical History Surgical History: hysterectomy, other - Social History Smoking Status: Current some day smoker Smokeless Tobacco Status: No Alcohol use: none Drug use: none - Family History Mother Hx Family Cardiac Disorders: Yes (HYPERTENSION.) Medications and Allergies Metoprolol [Lopressor] 50 mg PO BID 11/30/14 [History] TraZODone 50 mg PO HS 11/30/14 [History] Citalopram [CeleXA] 20 mg PO DAILY 06/05/15 [History] Rivaroxaban [Xarelto] 10 mg PO HS 04/01/16 [History] Allergies No Known Allergies Allergy (Verified 04/01/16 11:33) Review of systems: as in HPI Oncology - Exam - Constitutional Vitals: Temp Pulse Resp BP Pulse Ox 98.3 F 53 18 134/79 95 04/04/16 15:00 04/04/16 15:00 04/04/16 16:06 04/04/16 15:00 04/04/16 16:06 General appearance: obese - Head Head exam: Present: atraumatic, normal inspection - Eye Eye exam: Present: sclera anicteric - ENT ENT exam: Present: mucous membranes moist - Neck Neck exam: Present: full ROM, normal inspection - Respiratory Respiratory exam: Present: CTAB - Cardiovascular Cardiovascular exam: Present: +S1, +S2 - GI/Abdominal GI/Abdominal exam: Present: normal bowel sounds, soft - Extremities Exam Additional comments: trace edema, NT - Neurological Exam Neurological exam: Present: alert, oriented X3 - Psychiatric Psychiatric exam: Present: normal mood - Skin Skin exam: Present: normal color Oncology - Results - Labs Labs: [facility] 04/04/16 05:02 Sodium 138 Potassium 4.6 H Chloride 104 Carbon Dioxide 22 BUN 21 H Creatinine 0.82 Glucose 153 H Calcium 9.0 - Imaging and Cardiology CT scan - chest Status: image reviewed by me Consult Discharge Plan - Plan Referrals: Raymon Rogel MD [Primary Care Provider] -
[2016-04-04] MEDS: traZODone 50 MG TABLET PO SCH (21:20)
[2016-04-05] MEDS: methylPREDNISolone 125 MG/2 ML VIAL IVP SCH ×2 (00:55→09:03)
[2016-04-05] MEDS: Ipratropium/Albuterol Neb 3 ML IH SCH ×4 (03:07→22:01)
[2016-04-05] MEDS: *HR* Morphine 2 MG/ML SYRINGE IVP PRN ×2 (04:47→09:04)
[2016-04-05] MEDS: Famotidine 20 MG TABLET PO SCH ×2 (09:03→22:56)
[2016-04-05] MEDS: APIXABAN 5 MG TABLET PO SCH ×2 (09:03→22:56)
[2016-04-05] MEDS: Lactulose Oral Soln 20 GM/30 ML UDC PO SCH ×2 (09:04→22:55)
[2016-04-05] MEDS: Nicotine 21 MG PATCH.TD24 TD SCH (09:04)
--- NOTE | 2016-04-05 09:11 | Discharge Summary ---
<Justin Nunes - Last Filed: 04/05/16 18:36> Date of Encounter: 04/05/16 Time of Encounter: 09:07 - Discharge Diagnosis (1) Pulmonary embolus Priority: Primary Status: Acute Qualifiers: Pulmonary embolism type: other Chronicity: acute Acute cor pulmonale presence: without acute cor pulmonale Qualified Code(s): I26.99 - Other pulmonary embolism without acute cor pulmonale (2) Hypertension Priority: Secondary Status: Acute Qualifiers: Hypertension type: essential hypertension Qualified Code(s): I10 - Essential (primary) hypertension (3) Acute respiratory failure with hypoxemia Priority: Secondary Status: Acute (4) COPD (chronic obstructive pulmonary disease) Priority: Secondary Status: Acute Qualifiers: COPD type: COPD with acute exacerbation Qualified Code(s): J44.1 - Chronic obstructive pulmonary disease with (acute) exacerbation - Discharge Medications Prescriptions: Albuterol Sulfate [Albuterol Inhaler] 2 puff IH Q4HR PRN 90 Days PRN Reason: Shortness Of Breath Albuterol Neb [Proventil Neb] 2.5 mg IH Q2H PRN 90 Days PRN Reason: Shortness Of Breath/Wheezing Apixaban [Eliquis] 5 mg PO BID #60 tablet Azithromycin [Zithromax] 500 mg PO DAILY #3 tablet GuaiFENesin ER [Mucinex] 1,200 mg PO BID #60 tbbp.12hr PredniSONE [Prednisone] 10 mg PO TAPER #10 tab.ds.pk Home Medications: Metoprolol [Lopressor] 50 mg PO BID 11/30/14 [History] TraZODone 50 mg PO HS 11/30/14 [History] Citalopram [CeleXA] 20 mg PO DAILY 06/05/15 [History] Albuterol Neb [Proventil Neb] 2.5 mg IH Q2H PRN 90 Days 04/05/16 [Rx] Albuterol Sulfate [Albuterol Inhaler] 2 puff IH Q4HR PRN 90 Days 04/05/16 [Rx] Apixaban [Eliquis] 5 mg PO BID #60 tablet 04/05/16 [Rx] Azithromycin [Zithromax] 500 mg PO DAILY #3 tablet 04/05/16 [Rx] GuaiFENesin ER [Mucinex] 1,200 mg PO BID #60 tbbp.12hr 04/05/16 [Rx] PredniSONE [Prednisone] 10 mg PO TAPER #10 tab.ds.pk 04/05/16 [Rx] Allergies/Adverse Reactions: Allergies No Known Allergies Allergy (Verified 04/01/16 11:33) Procedures/tests Complete & Pending: Procedures Performed prior 72 hours Category Date Time Status EV echocardiogram Routine Y 04/02/16 12:25 Completed Date of admission: 04/01/16 14:27 Primary care physician: Raymon Rogel MD Consults: 04/04/16 08:26 Consult to Oncology Hematology [CONS] Routine Consulting Provider: Omayra Pineda Reason for Consult: 60/F hx of uterine cancer is on xarelto for previous PEs. Painilesh is admitted for PE. We would like recommendation for anticoagulation. Currently on heparin drip. SHe sees Dr. Ojeda outpatient. Call Completed: Yes 04/04/16 10:46 Consult to Last Model Department Supervisor [CONS] Routine Reason for SW Consult: Jevon marte 04/02/16 11:27 Consult to Nurse Navigator [CONS] Routine Comment: Discharging clinician: Justin Nunes Anticipated date of discharge: 04/05/16 - Patient Status Disposition: Home, Self-Care Overall status at discharge: patient is not back to baseline - Discharge Instructions Follow Up With: Raymon Rogel MD [Primary Care Provider] - Eb Ordaz MD [Partnered Physician] - (changed patients anticoagulation from Xarelto to eliquis. ) - Diet and Activity Activity: increase activity as tolerated Diet: advance to your usual diet Hospital course: Ms. Bashir is a 60 year old female hx of uterine cancer s/p treatment, Tobacco abuse, COPD on 2L O2 at home and PE presented with CC of back pain that started two days before yaritza, sob, cough. She was worried she had another blood clot. She was currently being anticoagulated with Xarelto and followed by Dr. Ordaz outpatient. She denied missing doses. CT Angio Chest showed small pulmonary embolism. Patient was treated with full dose lovenox inpatient. An echocardiogram was obtained which showed no R. Heart strain. Her SOB and pain improved over the course of her stay. She was supplemented with oxygen, steroids , nebulizer, and azithromycin for COPD exacerbation. Hematology was consulted for advice on future anticoagulation. They recommended starting patient on eliquis. Patient was switched to eliquis and tolerated it well. Today she had no complaints of sob, chest pain. She had a mild headache. Patient is ambulating well w/o assistance, has good oral intake. She is medically stable for discharge. Plan will be to follow up with DR. Ordaz and PCP within next seven days. Patient will be discharged on prescriptions for albuterol inhaler, nebulizer, and prednisone taper and continuation of abx for additional three days. - Time Spent with Patient Total time spent providing and/or coordinating discharge services: - Constitutional Vitals: Temp Pulse Resp BP Pulse Ox 97.9 F 53 14 161/82 94 L 04/05/16 07:09 04/05/16 07:09 04/05/16 07:09 04/05/16 07:09 04/05/16 07:09 General appearance: Present: mild distress, A&O X 3, obese, answers questions appropriately - Head Head exam: Present: atraumatic, normocephalic - Eye Eye exam: Present: EOMI, PERRL, conjuntiva pink, sclera anicteric - Neck Neck exam general surgery: Present: supple, trachea midline. Absent: lymphadenopathy - Respiratory Respiratory exam: Present: decreased breath sounds, wheezes (mild basilar ). Absent: accessory muscle use, rales, rhonchi - Cardiovascular Cardiovascular exam: Present: RRR, +S1, +S2. Absent: diastolic murmur, gallop, rubs, systolic murmur - GI/Abdominal GI/Abdominal exam: Present: normal bowel sounds, soft, no peritoneal signs. Absent: distended, tenderness - Extremities Exam Extremities exam: Present: warm, radial pulses palpable and symetrical. Absent : calf tenderness, cyanotic, pedal edema - Neurological Exam Neurological exam: Present: CN II-XII intact, oriented X3, no focal deficits. Absent: pronater drift, facial droop, speech deficit - Skin Skin exam: Present: dry, intact <Diann,Cr P - Last Filed: 04/05/16 18:59> Date of Encounter: 04/05/16 Date of admission: 04/01/16 14:27 Primary care physician: Raymon Rogel MD Consults: 04/04/16 08:26 Consult to Oncology Hematology [CONS] Routine Consulting Provider: Omayra Pineda Reason for Consult: 60/F hx of uterine cancer is on xarelto for previous PEs. Piyush is admitted for PE. We would like recommendation for anticoagulation. Currently on heparin drip. SHe sees Dr. Ojeda outpatient. Call Completed: Yes 04/04/16 10:46 Consult to Last Model Department Supervisor [CONS] Routine Reason for SW Consult: Jevon marte 04/02/16 11:27 Consult to Nurse Navigator [CONS] Routine Comment: Hospital course: Ms. Bashir is a 60 year old female - Time Spent with Patient Total time spent providing and/or coordinating discharge services: - Constitutional Vitals: Temp Pulse Resp BP Pulse Ox 97.9 F 51 18 134/85 94 L 04/05/16 15:14 04/05/16 15:14 04/05/16 17:44 04/05/16 15:14 04/05/16 18:00 - Attending Attestation I examined this patient and my medical decision-making was reviewed with the SOFTWARE VALIDATION ENGINEER/PA/Advanced Practice Nurse/Resident Physician. I agree with the documented findings, disposition and treatment plan as described except to the extent set forth below.
[2016-04-05] MEDS: Acetaminophen 325 MG TABLET PO PRN ×2 (11:56→22:56)
[2016-04-05] MEDS: Azithromycin 500 MG in D5% in Water 250 ML IVPB SCH (14:07)
[2016-04-05] MEDS: *HR* OxyCODONE/APAP 5/325 TABLET PO PRN (18:07)
[2016-04-05] MEDS: traZODone 50 MG TABLET PO SCH (22:56)
[2016-04-06] MEDS: *HR* OxyCODONE/APAP 5/325 TABLET PO PRN ×3 (00:13→13:49)
[2016-04-06] MEDS: Ipratropium/Albuterol Neb 3 ML IH SCH ×2 (04:00→10:22)
[2016-04-06] MEDS: Famotidine 20 MG TABLET PO SCH (07:43)
[2016-04-06] MEDS: Nicotine 21 MG PATCH.TD24 TD SCH (07:43)
[2016-04-06] MEDS: APIXABAN 5 MG TABLET PO SCH (07:43)
[2016-04-06] MEDS: Lactulose Oral Soln 20 GM/30 ML UDC PO SCH (07:43)
[2016-04-06] MEDS ORDERED: Azithromycin 250 MG TABLET PO SCH (12:00)
[2016-04-06 12:26] VITALS: BP 154/101
--- NOTE | 2016-04-06 13:21 | Internal Med Progress Note ---
<Justin Nunes - Last Filed: 04/06/16 13:18> Date of Encounter: 04/06/16 Time of Encounter: 13:18 - Assessment and plan (1) Pulmonary embolus Status: Acute Assessment and plan: Continue apixaban outpatient. Follow up with Dr. Ordaz. Appointment is already made. Patient is medically cleared for discharge. Qualifiers: Pulmonary embolism type: other Chronicity: acute Acute cor pulmonale presence: without acute cor pulmonale Qualified Code(s): I26.99 - Other pulmonary embolism without acute cor pulmonale (2) Hypertension Status: Acute Assessment and plan: Controlled. Continue home meds. See PCP after discharge within 7 days for follow up. Qualifiers: Hypertension type: essential hypertension Qualified Code(s): I10 - Essential (primary) hypertension (3) Acute respiratory failure with hypoxemia Status: Acute Assessment and plan: Resolved. (4) COPD (chronic obstructive pulmonary disease) Status: Acute Assessment and plan: Continue oxygen supplementation, albuterol inhaler and nebulizer at home. Qualifiers: COPD type: COPD with acute exacerbation Qualified Code(s): J44.1 - Chronic obstructive pulmonary disease with (acute) exacerbation - Subjective Interval history: Patient had no acute events overnight. She was d/c yesterday but was kept for one additional day for elevated BP. Patient vitals are stable. She has PCP and Dr. Ordaz, her healthcare manager/oncologist, appointments setup. She has her proper home prescriptions setup. - Constitutional Vitals: Temp Pulse Resp BP Pulse Ox 97.5 F L 52 16 154/101 95 04/06/16 11:15 04/06/16 12:26 04/06/16 12:26 04/06/16 12:26 04/06/16 11:15 General appearance: Present: mild distress, A&O X 3, obese, answers questions appropriately - Head Head exam: Present: atraumatic, normocephalic - Eye Eye exam: Present: EOMI, PERRL, conjuntiva pink, sclera anicteric - Neck Neck exam general surgery: Present: supple, trachea midline. Absent: lymphadenopathy - Respiratory Respiratory exam: Present: CTAB. Absent: accessory muscle use, rales, rhonchi, wheezes - Cardiovascular Cardiovascular exam: Present: RRR, +S1, +S2. Absent: diastolic murmur, gallop, rubs, systolic murmur - GI/Abdominal GI/Abdominal exam: Present: normal bowel sounds, soft, no peritoneal signs. Absent: distended, tenderness - Extremities Exam Extremities exam: Present: warm, radial pulses palpable and symetrical. Absent : calf tenderness, cyanotic, pedal edema - Neurological Exam Neurological exam: Present: CN II-XII intact, oriented X3, no focal deficits. Absent: pronater drift, facial droop, speech deficit - Skin Skin exam: Present: dry, intact Internal Medicine: Result - Labs CBC & Chem 7: 04/03/16 04:50 04/04/16 05:02 - ABG Interpretation ABG results: PT/INR, D-dimer PT 11.2 Seconds (9.4-12.1) 04/02/16 06:36 D-Dimer 361 ng/mLFEU (0-500) 04/01/16 11:50 Consult Discharge Plan - Plan Instructions: Albuterol (By breathing), Prednisone (By mouth), Guaifenesin (By mouth), Azithromycin (By mouth), Apixaban (By mouth), Heart Failure (DC), Pulmonary Embolism (DC), Acute Respiratory Distress Syndrome (DC), Chronic Obstructive Pulmonary Disease (DC), Chronic Hypertension (DC) Referrals: Raymon Rogel MD [Primary Care Provider] - 04/13/16 9:45 am Eb Ordaz MD [Partnered Physician] - 04/25/16 8:30 am (changed patients anticoagulation from Xarelto to eliquis. please arrive 10-15 minutes early to your appt. Thank you. ) Prescriptions: Albuterol Sulfate [Albuterol Inhaler] 2 puff IH Q4HR PRN 90 Days PRN Reason: Shortness Of Breath OxyCODONE/APAP 5/325 [Percocet 5/325 MG] 1 each PO Q6HR PRN #28 tablet PRN Reason: Pain Albuterol Neb [Proventil Neb] 2.5 mg IH Q2H PRN 90 Days PRN Reason: Shortness Of Breath/Wheezing Apixaban [Eliquis] 5 mg PO BID #60 tablet Azithromycin [Zithromax] 500 mg PO DAILY #3 tablet GuaiFENesin ER [Mucinex] 1,200 mg PO BID #60 tbbp.12hr PredniSONE [Prednisone] 10 mg PO TAPER #10 tab.ds.pk <Cr Tidwell P - Last Filed: 04/06/16 18:54> Date of Encounter: 04/06/16 - Constitutional Vitals: Temp Pulse Resp BP Pulse Ox 97.5 F L 52 16 154/101 95 04/06/16 11:15 04/06/16 12:26 04/06/16 12:26 04/06/16 12:26 04/06/16 11:15 Internal Medicine: Result - Labs CBC & Chem 7: 04/03/16 04:50 04/04/16 05:02 - ABG Interpretation ABG results: PT/INR, D-dimer PT 11.2 Seconds (9.4-12.1) 04/02/16 06:36 D-Dimer 361 ng/mLFEU (0-500) 04/01/16 11:50 - Attending Attestation I examined this patient and my medical decision-making was reviewed with the MANAGER [employer]/PA/Advanced Practice Nurse/Resident Physician. I agree with the documented findings, disposition and treatment plan as described except to the extent set forth below.
== END 2016-04-06 14:51 | disposition home or self-care (01) | DRG 134 ==
LOC: EMEROO 11:24 → 2NENU 11:24
PROVIDERS: ADMIT Internal Medicine; ATTEND Internal Medicine

== ENCOUNTER 2016-10-14 09:42 | Inpatient (IN) ==
[2016-10-14] MEDS ORDERED: *HR* Morphine 2 MG/ML SYRINGE IVP ONE (10:12)
[2016-10-14] MEDS ORDERED: 0.9 % Sodium Chloride 1,000 ML IVC ONE (10:12)
[2016-10-14] MEDS ORDERED: Ondansetron 4 MG/2 ML VIAL IVP ONE (10:12)
[2016-10-14 10:30] LABS: Basophils % 0.3 %; Eosinophils # 0.1 K/mcL (0.0-0.6); Eosinophils % 0.8 %; Hematocrit 41.8 % (35.3-44.9); Hemoglobin 13.7 g/dL (11.5-15.4); Immature Granulocytes % 0.3 % (0-4); Lymphocytes % 9.3 %; Mean Corpuscular HGB Conc 32.8 g/dL (31.6-35.5); Mean Corpuscular Hemoglobin 31.9 pg (28.0-33.3); Mean Corpuscular Volume 97.2 fL (83.0-100.0); Mean Platelet Volume 9.1 fL (9.4-12.4); Monocytes # 1.3 K/mcL (0.0-1.3); Monocytes % 12.3 %; Neutrophils # 7.9 K/mcL (1.6-8.9); Platelet Count 290 K/mcL (140-400); Red Cell Distribution Width 12.5 % (11.5-14.5)
[2016-10-14 10:49] LABS: Bilirubin,Urine Negative (Negative); Blood,Urine Large (Negative); Clarity,Urine Turbid (Clear); Color,Urine Dark Yellow (Yellow); Glucose,Urine (UA) Normal (Normal); Ketones,Urine Negative (Negative); Leukocyte Esterase,Urine Large (Negative); Nitrite,Urine Positive (Negative); PH,Urine 5.5 pH Units (5.0-8.0); Protein,Urine 100 mg/dL (Neg-Trace); Specific Gravity,Urine 1.016 (1.010-1.025); Urobilinogen,Urine Normal (Normal)
[2016-10-14 10:54] LABS: Bacteria,Urine Many per hpf (None-Few); RBC,Urine TNTC per hpf (0-3); Squamous Epithelial Cell,Urine Many per lpf (None-Few); WBC,Urine TNTC per hpf (0-3)
[2016-10-14 10:59] LABS: Alanine Aminotransferase 14 Units/L (0-55); Albumin 2.9 g/dL (3.5-5.0); Albumin/Globulin Ratio 0.6 (1.1-2.2); Alkaline Phosphatase 113 Units/L (38-126); Aspartate Amino Transferase 14 Units/L (5-34); BUN/Creatinine Ratio 12 (6-26); Bilirubin,Direct 0.5 mg/dL (0.0-0.5); Bilirubin,Indirect 0.6 mg/dL (0.0-1.2); Bilirubin,Total 1.1 mg/dL (0.2-1.2); Blood Urea Nitrogen 13 mg/dL (7-20); Calcium 9.3 mg/dL (8.6-10.8); Carbon Dioxide 29 mEq/L (19-29); Chloride 97 mEq/L (98-109); Globulin 4.5 g/dL (2.4-3.5); Glucose 134 mg/dL (70-99); Lipase 10 Units/L (8-78); Osmolality,Calculated 280 (280-300); Potassium 4.3 mEq/L (3.5-4.5); Sodium 134 mEq/L (136-145); Total Protein 7.4 g/dL (6.0-8.3); eGFR For African Americans > 60 (> 60); eGFR For Non-African Americans 52 (> 60)
--- NOTE | 2016-10-14 11:27 | Emergency Department Note ---
Disposition Clinical Impression: Pyelonephritis, Abdominal fluid collection, Cystitis Disposition: Admitted As Inpatient Condition: Fair Referrals: NO,PCP [Primary Care Provider] - Forms: Work/School Release, ED Satisfaction Letter Abdominal Pain HPI - General Chief Complaint: ED Abdominal Pain Stated Complaint: abd pain, recent abd sx Time Seen by Provider: 10/14/16 09:58 Source: patient Mode of arrival: private vehicle Limitations: no limitations Nursing Notes Reviewed: Yes Vital Signs Reviewed: Yes - History of Present Illness Pt Subjective Complaint: abdominal pain Onset (ago): week(s) Consistency: constant Location: periumbilical Pain Severity: moderate Pain Scale: 8 Quality: cramping, aching Radiation: none Migration to: no migration Improves with: nothing Worsens with: nothing Context: recent surgery/procedure (hernia repair about 3 weeks ago) Associated symptoms: Reports: nausea, vomiting, anorexia. Denies: diarrhea, fever, chills, constipation, dysuria, hematemesis, hematochezia, melena, hematuria, syncope Treatments prior to arrival: none - Related Data Home Medications Medication Instructions Recorded Confirmed Metoprolol [Lopressor] 50 mg PO BID 11/30/14 10/06/16 traZODone [TraZODone] 50 mg PO HS 11/30/14 10/06/16 Citalopram [CeleXA] 20 mg PO DAILY 06/05/15 10/06/16 Previous Rx's Medication Instructions Recorded Acetaminophen [Tylenol] 650 mg PO Q6HR PRN #0 tablet 09/23/16 OxyCODONE/APAP 7.5/325 [Percocet 1 each PO Q4-6H PRN #20 tablet 09/23/16 7.5/325 MG] Apixaban [Eliquis] 5 mg PO BID #60 tablet 10/06/16 Oxycodone HCl/Acetaminophen 1 each PO Q6H PRN #30 tablet 10/06/16 [Percocet 7.5-325 mg Tablet] Allergies Allergy/AdvReac Type Severity Reaction Status Date / Time levofloxacin [From Levaquin] Allergy Itching Verified 10/14/16 09:56 All systems ED: reviewed and negative except as stated. Constitutional: Reports: chills. Denies: fever, weakness, weight change, night sweats Cardiovascular: Denies: chest pain, palpitations, dyspnea on exertion, syncope Respiratory: Denies: cough, dyspnea, wheezes Gastrointestinal: Reports: as per HPI, abdominal pain, nausea, vomiting. Denies : diarrhea, constipation Genitourinary: Denies: urgency, dysuria, frequency, hematuria, discharge Musculoskeletal: Denies: back pain, neck pain, joint swelling Integumentary: Denies: rash Neurological: Reports: weakness. Denies: headache, numbness, paresthesias Hematological/Lymphatic: Denies: easy bleeding, easy bruising Abdominal Pain PMH - Past Medical History Medical history: Reports: cancer, CHF, COPD, DVT, GI bleed, hypertension, pulmonary embolus, other Female Surgical History: Reports: herniorrhaphy, hysterectomy, other AQUACULTURIST history: Reports: no AQUACULTURIST history, other Psychiatric history: Reports: anxiety, depression - Social History Smoking status: Current every day smoker Alcohol use: Reports: none Drug use: Reports: none Physical Exam - General Limitations: no limitations General appearance: alert, in no apparent distress - Head Head exam: atraumatic, normocephalic, normal inspection - Eye Eye exam: Present: normal appearance, PERRL. Absent: scleral icterus, conjunctival injection, periorbital swelling - ENT ENT exam: mucous membranes dry - Neck Neck exam: Present: normal inspection - Chest Chest inspection: Present: normal inspection, symmetric chest wall rise - Respiratory Respiratory exam: Present: normal lung sounds bilaterally. Absent: respiratory distress, wheezes - Cardiovascular Cardiovascular exam: Present: regular rate, normal rhythm, normal heart sounds - Abdominal Exam Abdominal exam: Present: soft, tenderness, diminished bowel sounds. Absent: distention, guarding, rebound, rigidity, organomegaly, Mcgovern's sign, Rovsing's sign, mass, pulsatile mass Abdominal tenderness: Present: RLQ, LLQ, suprapubic - Extremities Exam Extremities exam: Present: normal inspection - Back Exam Back exam: Present: normal inspection. Absent: CVA tenderness (R), CVA tenderness (L) - Neurological Exam Neurological exam: Present: alert, oriented X3, CN II-XII intact - Psychiatric Psychiatric exam: Present: normal affect, normal mood - Skin Skin exam: Present: warm, dry, intact, normal color Course Course Narrative: Patient presents for evaluation of abdominal pain x several weeks. She had a recent umbilical hernia repair 09/23, with no complications. She has had anorexia , nausea and vomiting, but no fever or genitourinary complaints. She has normal vitals and appears uncomfortable but non-toxic. Labs and CT ordered, along with pain meds and antiemetics. Pain is much better. Patient had a transient episode of hypotension after receiving the morphine. She was concurrently receiving IV fluids and her repeat blood pressure came back up to normal. At no time did she have any change in her mental status. Patient is resting comfortably. Nausea better. Labs show a UTI and probable dehydration. CT pending. Case has been discussed with Dr. Graves. He has seen the patient and agrees with the assessment and plan. Patient's CT was read by the radiologist as a small deep fluid collection adjacent to the recent hernia repair, most likely consistent with a seroma as well as findings consistent with cystitis and bilateral pyelonephritis. Patient received Rocephin and IV fluids. She will require admission for further evaluation and treatment. Vital Signs Temperature 98.5 F 10/14/16 09:51 Pulse Rate 64 10/14/16 09:51 Respiratory Rate 18 10/14/16 09:51 Blood Pressure 106/74 10/14/16 09:51 O2 Sat by Pulse Oximetry 94 10/14/16 09:51 Temperature 98.5 F 10/14/16 09:51 Pulse Rate 66 10/14/16 11:01 Respiratory Rate 16 10/14/16 11:01 Blood Pressure 88/51 10/14/16 11:01 O2 Sat by Pulse Oximetry 93 10/14/16 11:06 Oxygen Delivery Oxygen Delivery Room Air Abdominal Pain - Medical Records Medical records reviewed: Yes I reviewed the patient's medical records. - Lab Data Lab results reviewed: Yes I reviewed the patient's lab results. Lab results narrative: Laboratory Last Values WBC 10.3 K/mcL (4.3-11.1) 10/14/16 10:23 RBC 4.30 M/mcL (3.82-4.97) 10/14/16 10:23 Hgb 13.7 g/dL (11.5-15.4) 10/14/16 10:23 Hct 41.8 % (35.3-44.9) 10/14/16 10:23 MCV 97.2 fL (83.0-100.0) 10/14/16 10:23 MCH 31.9 pg (28.0-33.3) 10/14/16 10:23 MCHC 32.8 g/dL (31.6-35.5) 10/14/16 10:23 RDW 12.5 % (11.5-14.5) 10/14/16 10:23 Plt Count 290 K/mcL (140-400) 10/14/16 10:23 MPV 9.1 fL (9.4-12.4) L 10/14/16 10:23 Immature Gran % 0.3 % (0-4) 10/14/16 10:23 Seg Neutrophils % 77.0 % 10/14/16 10:23 Lymphocytes % 9.3 % 10/14/16 10:23 Monocytes % 12.3 % 10/14/16 10:23 Eosinophils % 0.8 % 10/14/16 10:23 Basophils % 0.3 % 10/14/16 10:23 Neutrophils # 7.9 K/mcL (1.6-8.9) 10/14/16 10:23 Lymphocytes # 1.0 K/mcL (0.6-4.6) 10/14/16 10:23 Monocytes # 1.3 K/mcL (0.0-1.3) 10/14/16 10:23 Eosinophils # 0.1 K/mcL (0.0-0.6) 10/14/16 10:23 Basophils # 0.0 K/mcL (0.0-0.2) 10/14/16 10:23 Sodium 134 mEq/L (136-145) L 10/14/16 10:23 Potassium 4.3 mEq/L (3.5-4.5) 10/14/16 10:23 Chloride 97 mEq/L (98-109) L 10/14/16 10:23 Carbon Dioxide 29 mEq/L (19-29) 10/14/16 10:23 BUN 13 mg/dL (7-20) 10/14/16 10:23 Creatinine 1.07 mg/dL (0.57-1.11) 10/14/16 10:23 Est GFR ( Amer) > 60 (> 60) 10/14/16 10:23 Est GFR (Non-Af Amer) 52 (> 60) L 10/14/16 10:23 BUN/Creatinine Ratio 12 (6-26) 10/14/16 10:23 Glucose 134 mg/dL (70-99) H 10/14/16 10:23 Calculated Osmolality 280 (280-300) 10/14/16 10:23 Lactic Acid 1.7 mmol/L (0.5-2.2) 10/14/16 10:23 Calcium 9.3 mg/dL (8.6-10.8) 10/14/16 10:23 Total Bilirubin 1.1 mg/dL (0.2-1.2) 10/14/16 10:23 Direct Bilirubin 0.5 mg/dL (0.0-0.5) 10/14/16 10:23 Indirect Bilirubin 0.6 mg/dL (0.0-1.2) 10/14/16 10:23 AST 14 Units/L (5-34) 10/14/16 10:23 ALT 14 Units/L (0-55) 10/14/16 10:23 Alkaline Phosphatase 113 Units/L (38-126) 10/14/16 10:23 Serum Total Protein 7.4 g/dL (6.0-8.3) 10/14/16 10:23 Albumin 2.9 g/dL (3.5-5.0) L 10/14/16 10:23 Globulin 4.5 g/dL (2.4-3.5) H 10/14/16 10:23 Albumin/Globulin Ratio 0.6 (1.1-2.2) L 10/14/16 10:23 Lipase 10 Units/L (8-78) 10/14/16 10:23 Urine Color Dark Yellow (Yellow) 10/14/16 10:36 Urine Clarity Turbid (Clear) A 10/14/16 10:36 Urine pH 5.5 pH Units (5.0-8.0) 10/14/16 10:36 Ur Specific [place] 1.016 (1.010-1.025) 10/14/16 10:36 Urine Protein 100 mg/dL (Neg-Trace) H 10/14/16 10:36 Urine Glucose (UA) Normal mg/dL (Normal) 10/14/16 10:36 Urine Ketones Negative mg/dL (Negative) 10/14/16 10:36 Urine Blood Large (Negative) H 10/14/16 10:36 Urine Nitrite Positive (Negative) A 10/14/16 10:36 Urine Bilirubin Negative (Negative) 10/14/16 10:36 Urine Urobilinogen Normal mg/dL (Normal) 10/14/16 10:36 Ur Leukocyte Esterase Large (Negative) H 10/14/16 10:36 Urine Microscopic RBC TNTC per hpf (0-3) H 10/14/16 10:36 Urine Microscopic WBC TNTC per hpf (0-3) H 10/14/16 10:36 Ur Squamous Epith Cells Many per lpf (None-Few) H 10/14/16 10:36 Urine Bacteria Many per hpf (None-Few) H 10/14/16 10:36 Ur Culture Indicated? YES (NO) A 10/14/16 10:36 Result diagrams: 10/14/16 10:23 10/14/16 10:23 Lab Results 10/14/16 10/14/16 10/14/16 Range/Units 10:23 10:23 10:23 WBC 10.3 (4.3-11.1) K/mcL RBC 4.30 (3.82-4.97) M/mcL Hgb 13.7 (11.5-15.4) g/dL Hct 41.8 (35.3-44.9) % MCV 97.2 (83.0-100.0) fL MCH 31.9 (28.0-33.3) pg MCHC 32.8 (31.6-35.5) g/dL RDW 12.5 (11.5-14.5) % Plt Count 290 (140-400) K/mcL MPV 9.1 L (9.4-12.4) fL Immature Gran % 0.3 (0-4) % Seg Neutrophils % 77.0 % Lymphocytes % 9.3 % Monocytes % 12.3 % Eosinophils % 0.8 % Basophils % 0.3 % Neutrophils # 7.9 (1.6-8.9) K/mcL Lymphocytes # 1.0 (0.6-4.6) K/mcL Monocytes # 1.3 (0.0-1.3) K/mcL Eosinophils # 0.1 (0.0-0.6) K/mcL Basophils # 0.0 (0.0-0.2) K/mcL Sodium 134 L (136-145) mEq/L Potassium 4.3 (3.5-4.5) mEq/L Chloride 97 L (98-109) mEq/L Carbon Dioxide 29 (19-29) mEq/L BUN 13 (7-20) mg/dL Creatinine 1.07 (0.57-1.11) mg/dL Est GFR ( Amer) > 60 (> 60) Est GFR (Non-Af Amer) 52 L (> 60) BUN/Creatinine Ratio 12 (6-26) Glucose 134 H (70-99) mg/dL Calculated Osmolality 280 (280-300) Lactic Acid 1.7 (0.5-2.2) mmol/L Calcium 9.3 (8.6-10.8) mg/dL Total Bilirubin 1.1 (0.2-1.2) mg/dL Direct Bilirubin 0.5 (0.0-0.5) mg/dL Indirect Bilirubin 0.6 (0.0-1.2) mg/dL AST 14 (5-34) Units/L ALT 14 (0-55) Units/L Alkaline Phosphatase 113 (38-126) Units/L Serum Total Protein 7.4 (6.0-8.3) g/dL Albumin 2.9 L (3.5-5.0) g/dL Globulin 4.5 H (2.4-3.5) g/dL Albumin/Globulin Ratio 0.6 L (1.1-2.2) Lipase 10 (8-78) Units/L Urine Color (Yellow) Urine Clarity (Clear) Urine pH (5.0-8.0) pH Units Ur Specific [place] (1.010-1.025) Urine Protein (Neg-Trace) mg/dL Urine Glucose (UA) (Normal) mg/dL Urine Ketones (Negative) mg/dL Urine Blood (Negative) Urine Nitrite (Negative) Urine Bilirubin (Negative) Urine Urobilinogen (Normal) mg/dL Ur Leukocyte Esterase (Negative) Urine Microscopic RBC (0-3) per hpf Urine Microscopic WBC (0-3) per hpf Ur Squamous Epith Cells (None-Few) per lpf Urine Bacteria (None-Few) per hpf Ur Culture Indicated? (NO) 10/14/16 Range/Units 10:36 WBC (4.3-11.1) K/mcL RBC (3.82-4.97) M/mcL Hgb (11.5-15.4) g/dL Hct (35.3-44.9) % MCV (83.0-100.0) fL MCH (28.0-33.3) pg MCHC (31.6-35.5) g/dL RDW (11.5-14.5) % Plt Count (140-400) K/mcL MPV (9.4-12.4) fL Immature Gran % (0-4) % Seg Neutrophils % % Lymphocytes % % Monocytes % % Eosinophils % % Basophils % % Neutrophils # (1.6-8.9) K/mcL Lymphocytes # (0.6-4.6) K/mcL Monocytes # (0.0-1.3) K/mcL Eosinophils # (0.0-0.6) K/mcL Basophils # (0.0-0.2) K/mcL Sodium (136-145) mEq/L Potassium (3.5-4.5) mEq/L Chloride (98-109) mEq/L Carbon Dioxide (19-29) mEq/L BUN (7-20) mg/dL Creatinine (0.57-1.11) mg/dL Est GFR ( Amer) (> 60) Est GFR (Non-Af Amer) (> 60) BUN/Creatinine Ratio (6-26) Glucose (70-99) mg/dL Calculated Osmolality (280-300) Lactic Acid (0.5-2.2) mmol/L Calcium (8.6-10.8) mg/dL Total Bilirubin (0.2-1.2) mg/dL Direct Bilirubin (0.0-0.5) mg/dL Indirect Bilirubin (0.0-1.2) mg/dL AST (5-34) Units/L ALT (0-55) Units/L Alkaline Phosphatase (38-126) Units/L Serum Total Protein (6.0-8.3) g/dL Albumin (3.5-5.0) g/dL Globulin (2.4-3.5) g/dL Albumin/Globulin Ratio (1.1-2.2) Lipase (8-78) Units/L Urine Color Dark Yellow (Yellow) Urine Clarity Turbid A (Clear) Urine pH 5.5 (5.0-8.0) pH Units Ur Specific [place] 1.016 (1.010-1.025) Urine Protein 100 H (Neg-Trace) mg/dL Urine Glucose (UA) Normal (Normal) mg/dL Urine Ketones Negative (Negative) mg/dL Urine Blood Large H (Negative) Urine Nitrite Positive A (Negative) Urine Bilirubin Negative (Negative) Urine Urobilinogen Normal (Normal) mg/dL Ur Leukocyte Esterase Large H (Negative) Urine Microscopic RBC TNTC H (0-3) per hpf Urine Microscopic WBC TNTC H (0-3) per hpf Ur Squamous Epith Cells Many H (None-Few) per lpf Urine Bacteria Many H (None-Few) per hpf Ur Culture Indicated? YES A (NO) - Radiology Data Radiology results reviewed: Yes I reviewed the patient's radiology results. Abdomen/Pelvis CT 10/14/16 10:14 IMPRESSION: 1. Status post midline ventral hernia repair with a mesh in place. Along the right paramedian aspect of the anterior abdominal wall there is a deep subcutaneous 2.9 cm loculated fluid collection which may represent a postsurgical seroma. There is no internal air to suggest abscess. 2. Mild postsurgical bowel adhesions with no obstruction. No intraperitoneal abscess. The appendix is normal. 3. Asymmetric bilateral renal changes which are more prominent on the right. Which may represent pyelonephritis. No evidence of a parenchymal abscess. Mild right pelvicaliectasis an ureteral dilatation with no obstructing mass or calculus. 4. Stable trabecular diffuse bladder wall thickening with new subtle adjacent fat induration. Acute cystitis cannot be excluded. D/ / Reed Hernandez MD / Reed Hernandez MD Interpreting Provider: Reed Hernandez MD
[2016-10-14] MEDS ORDERED: Naloxone 0.4 MG/ML INJ IVP PRN (15:17)
[2016-10-14] MEDS ORDERED: *HR* HYDROcodone/Acet 5/325 mg TABLET PO PRN (15:17)
[2016-10-14] MEDS ORDERED: *HR* Morphine 2 MG/ML SYRINGE IVP PRN (15:17)
[2016-10-14] MEDS ORDERED: *HR* HYDROcodone/Acet 7.5/325 mg TABLET PO PRN (15:26)
[2016-10-14] MEDS ORDERED: Albuterol 2.5 MG/3 ML NEBULIZER IH PRN (15:29)
--- NOTE | 2016-10-14 15:39 | Internal Med History&Physical ---
Date of Encounter: 10/14/16 Time of Encounter: 15:33 Assessment and Plan (1) Pyelonephritis Current visit: Yes Status: Acute Patient presented with nausea vomiting and abdominal pain, urinary frequency and urgency. UA was consistent with UTI, abdominal and pelvis CT showed evidence of bilateral pyelonephritis with right worse than left. Patient is afebrile and white blood cell count is normal at 10.3. Rocephin IV piggyback daily Await Culture results IV fluids 0.9 normal saline at 100mL/hr (2) Abdominal fluid collection Current visit: Yes Status: Acute Patient had hernia repair with mesh [address] of the abdomen and pelvis showed a small postsurgical seroma. No evidence of abscess. (3) COPD (chronic obstructive pulmonary disease) Current visit: Yes Status: Acute Patient has history of COPD, wears oxygen at home. Patient reports that she she is only supposed to wear it at night however has been wearing it 24 7 in the last couple weeks. She also reports a productive cough for the last couple of weeks. Budesonide formoterol twice a day DuoNeb treatments 4 times a day Titrate oxygen to maintain saturation greater than 92% Encourage smoking cessation Qualifiers: COPD type: COPD with acute exacerbation Qualified Code(s): J44.1 - Chronic obstructive pulmonary disease with (acute) exacerbation (4) History of recent surgery Current visit: Yes Status: Acute Patient with recent hernia repair with mesh, she has a midline incision approximately 5 cm, with a half centimeter opening at the distal aspect, nondraining, mild erythema surrounding the entire incision which looks clean and dry. [place] and morphine when necessary for abdominal pain. Narcan when necessary for respiratory depression (5) Nausea & vomiting Current visit: Yes Status: Acute Patient has had poor appetite, nausea and vomiting for the last couple of weeks. Likely secondary to UTI and pyelonephritis. Zofran when necessary for nausea IV fluids 0.9 normal saline at 100 mL per hour Qualifiers: Vomiting type: bilious vomiting Qualified Code(s): R11.14 - Bilious vomiting (6) DVT prophylaxis Current visit: Yes Status: Acute Antiembolic stockings Patient on all across her history of DVTs and PEs, additional pharmacologic prophylaxis not warranted. Internal Medicine - H&P: HPI Chief complaint: nausea, abdominal pain Admitted From: Emergency Dept Plans for Post Hospital Care: Home History of present illness: Ms. Bashir is a 61 year old female with hypertension, COPD, CHF, history of DVTs and PEs, presented to the emergency department today with complaints of nausea vomiting and abdominal pain. Patient reportedly had a hernia repair with mesh 3 weeks ago. She reports that approximately 2 weeks ago she started feeling tired, had a poor appetite, upper respiratory infection, and had a dull throbbing pain on her left side. Her symptoms progressed to include nausea and vomiting, the abdominal pain migrated to her midabdomen and right abdomen and she had chills and sweats as well. She reports she has urinary frequency and urgency. She denies any diarrhea, or constipation. She denies any chest pain, or palpitations. She reports she has felt a little bit more short of breath than her baseline. Evaluation in the emergency department included a UA which was grossly positive for UTI. CT of the abdomen and pelvis showed a small postsurgical seroma as well as evidence of bilateral pyelonephritis. Patient was given morphine, Zofran, 1 L fluid bolus, and Rocephin. On exam, patient alert and oriented, in no acute distress. Heart has regular rate and rhythm, lungs with diminished breath sounds, but no wheezing auscultated. Abdomen soft with 5 cm midline incision with mild surrounding erythema, small 0.5 cm area of the incision at the distal aspect is still open, without any drainage. Patient does have diffuse abdominal tenderness. Positive bowel sounds in all 4 quadrants. CVA tenderness on the right. Past Med Surg Social Fam HX - Past Medical History Medical history: cancer, CHF, COPD, DVT, GI bleed, hypertension, pulmonary embolus, other Psychiatric history: anxiety, depression - Past Surgical History Surgical History: herniorrhaphy, hysterectomy, other - Social History Smoking Status: Current every day smoker Smokeless Tobacco Status: No Alcohol use: none Drug use: none - Family History Mother Living Status: Still Living Hx Family Cardiac Disorders: Yes (HYPERTENSION.) Father Living Status: Hx Family Cardiac Disorders: Yes Hx Family Cancer: Yes Internal Medicine - H&P: Meds Metoprolol [Lopressor] 50 mg PO BID 11/30/14 [History] traZODone [TraZODone] 50 mg PO HS 11/30/14 [History] Citalopram [CeleXA] 20 mg PO DAILY 03/04/16 [History] Acetaminophen [Tylenol] 650 mg PO Q6HR PRN #0 tablet 09/23/16 [Rx] Apixaban [Eliquis] 5 mg PO BID #60 tablet 10/06/16 [Rx] OxyCODONE/APAP 7.5/325 [Percocet 7.5/325 MG] 1 tab PO Q4-6H PRN 10/14/16 [ History] Oxygen 3 l NS AD 10/14/16 [History] Allergies levofloxacin [From Levaquin] Allergy (Verified 10/14/16 09:56) Itching All Systems PM: A 10-system review of systems was performed and is negative for pertinent findings except as documented above in the HPI. - Constitutional Constitutional: anorexia, chills, fatigue, no fever(s), no night sweats - EENT Eyes: no change in vision, no discharge, no pain, no photophobia Ears: no ear discharge, no ear pain, no tinnitus Nose, mouth and throat: nasal congestion, no dysphagia, no nasal discharge, no neck pain, no sore throat - Cardiovascular Cardiovascular ROS IM: dyspnea, no chest pain, no diaphoresis, no lightheadedness, no palpitations, no syncope - Respiratory Respiratory: cough, dyspnea, no wheezing, no excessive phlegm production - Gastrointestinal Gastrointestinal: abdominal pain, nausea, vomiting, no diarrhea, no hematemesis , no hematochezia, no melena - Genitourinary Genitourinary: no change in urinary stream, no dysuria, no flank pain, no hematuria - Musculoskeletal Musculoskeletal ROS IM: no numbness, no tingling - Integumentary Integumentary IM: no rash, no unusual bruising - Neurological Neurological ROS: no confusion, no convulsions, no focal weakness, no numbness, no tingling, no tremor(s) - Hematologic/Lymphatic Hematologic/Lymphatic: no easy bruising - Constitutional Vitals: Temp Pulse Resp BP Pulse Ox 98.3 F 61 20 133/85 97 10/14/16 14:39 10/14/16 14:39 10/14/16 14:39 10/14/16 14:39 10/14/16 14:48 General appearance: Present: A&O X 3, morbidly obese, pleasant, no acute distress - Head Head exam: Present: atraumatic, normocephalic - Eye Eye exam: Present: PERRL, conjuntiva pink, sclera anicteric Pupils: Present: PERRL - Neck Neck exam general surgery: Present: supple, trachea midline. Absent: lymphadenopathy - Respiratory Respiratory exam: Present: decreased breath sounds, CTAB. Absent: accessory muscle use, rales, rhonchi, wheezes - Cardiovascular Cardiovascular exam: Present: RRR, +S1, +S2. Absent: diastolic murmur, gallop, rubs, systolic murmur - GI/Abdominal GI/Abdominal exam: Present: normal bowel sounds, soft, tenderness (diffuse), no peritoneal signs. Absent: distended - Extremities Exam Extremities exam: Present: warm, radial pulses palpable and symetrical. Absent : calf tenderness, cyanotic, pedal edema - [place] Incision: Present: clean and dry, erythema. Absent: draining, purulent - Back Exam Back exam: Present: CVA tenderness (R) - Neurological Exam Neurological exam: Present: CN II-XII intact, oriented X3, no focal deficits. Absent: facial droop, speech deficit - Skin Skin exam: Present: dry, intact Internal Med - H&P Results - Labs CBC & Chem 7: 10/14/16 10:23 10/14/16 10:23 Labs: All Lab Results (24 Hours) 10/14/16 10/14/16 10/14/16 Range/Units 10:23 10:23 10:23 WBC 10.3 (4.3-11.1) K/mcL RBC 4.30 (3.82-4.97) M/mcL Hgb 13.7 (11.5-15.4) g/dL Hct 41.8 (35.3-44.9) % MCV 97.2 (83.0-100.0) fL MCH 31.9 (28.0-33.3) pg MCHC 32.8 (31.6-35.5) g/dL RDW 12.5 (11.5-14.5) % Plt Count 290 (140-400) K/mcL MPV 9.1 L (9.4-12.4) fL Immature Gran % 0.3 (0-4) % Seg Neutrophils % 77.0 % Lymphocytes % 9.3 % Monocytes % 12.3 % Eosinophils % 0.8 % Basophils % 0.3 % Neutrophils # 7.9 (1.6-8.9) K/mcL Lymphocytes # 1.0 (0.6-4.6) K/mcL Monocytes # 1.3 (0.0-1.3) K/mcL Eosinophils # 0.1 (0.0-0.6) K/mcL Basophils # 0.0 (0.0-0.2) K/mcL Sodium 134 L (136-145) mEq/L Potassium 4.3 (3.5-4.5) mEq/L Chloride 97 L (98-109) mEq/L Carbon Dioxide 29 (19-29) mEq/L BUN 13 (7-20) mg/dL Creatinine 1.07 (0.57-1.11) mg/dL Est GFR ( Amer) > 60 (> 60) Est GFR (Non-Af Amer) 52 L (> 60) BUN/Creatinine Ratio 12 (6-26) Glucose 134 H (70-99) mg/dL Calculated Osmolality 280 (280-300) Lactic Acid 1.7 (0.5-2.2) mmol/L Calcium 9.3 (8.6-10.8) mg/dL Total Bilirubin 1.1 (0.2-1.2) mg/dL Direct Bilirubin 0.5 (0.0-0.5) mg/dL Indirect Bilirubin 0.6 (0.0-1.2) mg/dL AST 14 (5-34) Units/L ALT 14 (0-55) Units/L Alkaline Phosphatase 113 (38-126) Units/L Serum Total Protein 7.4 (6.0-8.3) g/dL Albumin 2.9 L (3.5-5.0) g/dL Globulin 4.5 H (2.4-3.5) g/dL Albumin/Globulin Ratio 0.6 L (1.1-2.2) Lipase 10 (8-78) Units/L Urine Color (Yellow) Urine Clarity (Clear) Urine pH (5.0-8.0) pH Units Ur Specific [place] (1.010-1.025) Urine Protein (Neg-Trace) mg/dL Urine Glucose (UA) (Normal) mg/dL Urine Ketones (Negative) mg/dL Urine Blood (Negative) Urine Nitrite (Negative) Urine Bilirubin (Negative) Urine Urobilinogen (Normal) mg/dL Ur Leukocyte Esterase (Negative) Urine Microscopic RBC (0-3) per hpf Urine Microscopic WBC (0-3) per hpf Ur Squamous Epith Cells (None-Few) per lpf Urine Bacteria (None-Few) per hpf Ur Culture Indicated? (NO) 10/14/16 Range/Units 10:36 WBC (4.3-11.1) K/mcL RBC (3.82-4.97) M/mcL Hgb (11.5-15.4) g/dL Hct (35.3-44.9) % MCV (83.0-100.0) fL MCH (28.0-33.3) pg MCHC (31.6-35.5) g/dL RDW (11.5-14.5) % Plt Count (140-400) K/mcL MPV (9.4-12.4) fL Immature Gran % (0-4) % Seg Neutrophils % % Lymphocytes % % Monocytes % % Eosinophils % % Basophils % % Neutrophils # (1.6-8.9) K/mcL Lymphocytes # (0.6-4.6) K/mcL Monocytes # (0.0-1.3) K/mcL Eosinophils # (0.0-0.6) K/mcL Basophils # (0.0-0.2) K/mcL Sodium (136-145) mEq/L Potassium (3.5-4.5) mEq/L Chloride (98-109) mEq/L Carbon Dioxide (19-29) mEq/L BUN (7-20) mg/dL Creatinine (0.57-1.11) mg/dL Est GFR ( Amer) (> 60) Est GFR (Non-Af Amer) (> 60) BUN/Creatinine Ratio (6-26) Glucose (70-99) mg/dL Calculated Osmolality (280-300) Lactic Acid (0.5-2.2) mmol/L Calcium (8.6-10.8) mg/dL Total Bilirubin (0.2-1.2) mg/dL Direct Bilirubin (0.0-0.5) mg/dL Indirect Bilirubin (0.0-1.2) mg/dL AST (5-34) Units/L ALT (0-55) Units/L Alkaline Phosphatase (38-126) Units/L Serum Total Protein (6.0-8.3) g/dL Albumin (3.5-5.0) g/dL Globulin (2.4-3.5) g/dL Albumin/Globulin Ratio (1.1-2.2) Lipase (8-78) Units/L Urine Color Dark Yellow (Yellow) Urine Clarity Turbid A (Clear) Urine pH 5.5 (5.0-8.0) pH Units Ur Specific [place] 1.016 (1.010-1.025) Urine Protein 100 H (Neg-Trace) mg/dL Urine Glucose (UA) Normal (Normal) mg/dL Urine Ketones Negative (Negative) mg/dL Urine Blood Large H (Negative) Urine Nitrite Positive A (Negative) Urine Bilirubin Negative (Negative) Urine Urobilinogen Normal (Normal) mg/dL Ur Leukocyte Esterase Large H (Negative) Urine Microscopic RBC TNTC H (0-3) per hpf Urine Microscopic WBC TNTC H (0-3) per hpf Ur Squamous Epith Cells Many H (None-Few) per lpf Urine Bacteria Many H (None-Few) per hpf Ur Culture Indicated? YES A (NO) - Diagnostic Studies CT scan - abdomen Additional comments: Abdomen/Pelvis CT 10/14/16 10:14 IMPRESSION: 1. Status post midline ventral hernia repair with mesh in place. Along the right paramedian aspect of the anterior abdominal wall there is a deep subcutaneous 2.9 cm loculated fluid collection which may represent a postsurgical seroma. There is no internal air to suggest abscess. 2. Mild postsurgical bowel adhesions with no obstruction. No intraperitoneal abscess. The appendix is normal. 3. Asymmetric bilateral renal changes which are more prominent on the right, which may represent pyelonephritis. No evidence of a parenchymal abscess. Mild right pelvicaliectasis and ureteral dilatation with no obstructing mass or calculus. 4. Stable trabecular diffuse bladder wall thickening with new subtle adjacent fat induration. Acute cystitis cannot be excluded. D/ / 10/14/2016 12:46:07 Reed Hernandez MD / simon Interpreting Provider: Reed Hernandez MD
[2016-10-14] MEDS ORDERED: Ipratropium/Albuterol Neb 3 ML IH PRN (15:44)
[2016-10-14] MEDS: 0.9 % Sodium Chloride 1,000 ML IVC SCH (16:44)
[2016-10-14] MEDS: Acetaminophen 325 MG TABLET PO PRN (16:49)
[2016-10-14] MEDS ORDERED: Ipratropium/Albuterol Neb 3 ML IH SCH (17:00)
[2016-10-14] MEDS: APIXABAN 5 MG TABLET PO SCH (20:36)
[2016-10-14] MEDS: traZODone 50 MG TABLET PO SCH (20:36)
[2016-10-14] MEDS: Budesonide/Formoterol 160/4.5 MDI IH SCH (21:53)
[2016-10-15] MEDS: Acetaminophen 325 MG TABLET PO PRN ×2 (00:54→16:30)
[2016-10-15] MEDS: 0.9 % Sodium Chloride 1,000 ML IVC SCH ×3 (02:55→23:55)
[2016-10-15 07:08] LABS: Basophils % 0.2 %; Eosinophils # 0.1 K/mcL (0.0-0.6); Eosinophils % 2.4 %; Hematocrit 35.9 % (35.3-44.9); Immature Granulocytes % 0.5 % (0-4); Lymphocytes # 1.3 K/mcL (0.6-4.6); Lymphocytes % 21.5 %; Mean Corpuscular HGB Conc 32.9 g/dL (31.6-35.5); Mean Corpuscular Hemoglobin 32.7 pg (28.0-33.3); Mean Corpuscular Volume 99.4 fL (83.0-100.0); Mean Platelet Volume 9.6 fL (9.4-12.4); Monocytes # 0.9 K/mcL (0.0-1.3); Monocytes % 14.5 %; Neutrophils # 3.6 K/mcL (1.6-8.9); Platelet Count 225 K/mcL (140-400); Red Blood Count 3.61 M/mcL (3.82-4.97); Red Cell Distribution Width 12.6 % (11.5-14.5); Segmented Neutrophils % 60.9 %
[2016-10-15 07:16] LABS: Hemoglobin 11.8 g/dL (11.5-15.4)
[2016-10-15 07:19] LABS: BUN/Creatinine Ratio 13 (6-26); Blood Urea Nitrogen 10 mg/dL (7-20); Calcium 8.7 mg/dL (8.6-10.8); Carbon Dioxide 32 mEq/L (19-29); Chloride 105 mEq/L (98-109); Glucose 106 mg/dL (70-99); Osmolality,Calculated 291 (280-300); Potassium 4.6 mEq/L (3.5-4.5); eGFR For African Americans > 60 (> 60); eGFR For Non-African Americans > 60 (> 60)
[2016-10-15 07:21] LABS: Sodium 141 mEq/L (136-145)
[2016-10-15] MEDS: Budesonide/Formoterol 160/4.5 MDI IH SCH ×2 (08:39→20:10)
[2016-10-15] MEDS: APIXABAN 5 MG TABLET PO SCH ×2 (09:01→20:04)
--- NOTE | 2016-10-15 11:28 | Internal Med Progress Note ---
Date of Encounter: 10/15/16 Time of Encounter: 11:26 - Assessment and plan (1) Pyelonephritis Current Visit: Yes Status: Acute Assessment and plan: Reviewed pt's CT of abd / Pelvis Her CVA tenderness started improving cont gentle iVF cont empirical abx with Rocephin Will do PVR x once- to check for urinary retention (2) Cystitis Current Visit: Yes Status: Acute Assessment and plan: cont empirical abx Rocephin f/u on Urine cx (3) Seroma complicating a procedure Current Visit: Yes Status: Acute Assessment and plan: Reviewed CT of abd results showed 2.9 cm size loculated fluid collection.. no signs of infection due to recent Ventral hernial repair no further work up needed (4) History of recent surgery Current Visit: Yes Status: Acute (5) Hypertension Current Visit: No Status: Acute Assessment and plan: stable with home meds Qualifiers: Hypertension type: essential hypertension Qualified Code(s): I10 - Essential (primary) hypertension (6) DVT, lower extremity Current Visit: No Status: Chronic Assessment and plan: on chronic home med Eliquis 5mg BID Qualifiers: Qualified Code(s): I82.409 - Acute embolism and thrombosis of unspecified deep veins of unspecified lower extremity (7) COPD (chronic obstructive pulmonary disease) Current Visit: Yes Status: Acute Assessment and plan: stable not in exacerbation resumed home INH Qualifiers: COPD type: COPD with acute exacerbation Qualified Code(s): J44.1 - Chronic obstructive pulmonary disease with (acute) exacerbation (8) History of pulmonary embolism Current Visit: No Status: Acute Assessment and plan: on Eliquis home med - Subjective Interval history: Ms. Bashir is a 61 year old female with hypertension, COPD, CHF, history of DVTs and PEs, presented to the emergency department today with complaints of nausea vomiting and abdominal pain. Patient reportedly had a hernia repair with mesh 3 weeks ago. She reports that approximately 2 weeks ago she started feeling tired, had a poor appetite, upper respiratory infection, and had a dull throbbing pain on her left side. Her symptoms progressed to include nausea and vomiting, the abdominal pain migrated to her mid abdomen and right abdomen and she had chills and sweats as well. She reports she has urinary frequency and urgency. Pt was started on IV abx and IVF last night. She feels better today. Afebrile. No CP / SOB. still has mild b/l flank pain more on Rt - Constitutional Vitals: Temp Pulse Resp BP Pulse Ox 97.6 F 78 18 92/59 92 10/15/16 10:41 10/15/16 10:41 10/15/16 10:41 10/15/16 10:41 10/15/16 10:41 General appearance: Present: A&O X 3, morbidly obese, pleasant, no acute distress - Respiratory Respiratory exam: Present: CTAB. Absent: accessory muscle use, rales, rhonchi, wheezes - Cardiovascular Cardiovascular exam: Present: RRR, +S1, +S2. Absent: diastolic murmur, gallop, rubs, systolic murmur - GI/Abdominal GI/Abdominal exam: Present: distended, normal bowel sounds, soft. Absent: tenderness Additional comments: clean incision / surgical scar over mid abdomen..no signs of infection. no swelling noticed - Extremities Exam Extremities exam: Absent: calf tenderness, pedal edema, tenderness - Back Exam Back exam: Present: CVA tenderness (R). Absent: CVA tenderness (L) - Psychiatric Psychiatric exam: Present: normal affect, normal mood Internal Medicine: Result - Labs CBC & Chem 7: 10/15/16 06:36 10/15/16 06:36 Labs: Short CBC 10/15/16 Range/Units 06:36 WBC 5.9 (4.3-11.1) K/mcL Hgb 11.8 D (11.5-15.4) g/dL Hct 35.9 (35.3-44.9) % Plt Count 225 (140-400) K/mcL Neutrophils # 3.6 (1.6-8.9) K/mcL BMP 10/15/16 06:36 Sodium 141 D Potassium 4.6 H Chloride 105 Carbon Dioxide 32 H BUN 10 Creatinine 0.75 Glucose 106 H Calcium 8.7 Consult Discharge Plan - Plan Referrals: Raymon Rogel MD [Non-Partnered Physician] -
[2016-10-15] MEDS: Ondansetron 4 MG/2 ML VIAL IVP PRN (16:30)
[2016-10-15] MEDS: traZODone 50 MG TABLET PO SCH (20:04)
[2016-10-16 05:09] LABS: Basophils % 0.2 %; Eosinophils # 0.2 K/mcL (0.0-0.6); Eosinophils % 3.5 %; Hemoglobin 11.8 g/dL (11.5-15.4); Immature Granulocytes % 0.4 % (0-4); Lymphocytes # 1.3 K/mcL (0.6-4.6); Lymphocytes % 23.5 %; Mean Corpuscular HGB Conc 31.9 g/dL (31.6-35.5); Mean Corpuscular Hemoglobin 31.9 pg (28.0-33.3); Mean Platelet Volume 9.7 fL (9.4-12.4); Monocytes # 0.7 K/mcL (0.0-1.3); Monocytes % 12.4 %; Neutrophils # 3.4 K/mcL (1.6-8.9); Platelet Count 236 K/mcL (140-400); Red Cell Distribution Width 12.4 % (11.5-14.5)
[2016-10-16 05:27] LABS: BUN/Creatinine Ratio 16 (6-26); Blood Urea Nitrogen 12 mg/dL (7-20); Calcium 8.6 mg/dL (8.6-10.8); Carbon Dioxide 30 mEq/L (19-29); Chloride 106 mEq/L (98-109); Glucose 115 mg/dL (70-99); Osmolality,Calculated 293 (280-300); Potassium 4.4 mEq/L (3.5-4.5); Sodium 141 mEq/L (136-145); eGFR For African Americans > 60 (> 60); eGFR For Non-African Americans > 60 (> 60)
[2016-10-16] MEDS: Ondansetron 4 MG/2 ML VIAL IVP PRN ×2 (07:24→16:41)
[2016-10-16] MEDS: APIXABAN 5 MG TABLET PO SCH ×2 (07:25→20:05)
[2016-10-16] MEDS: Budesonide/Formoterol 160/4.5 MDI IH SCH ×2 (08:04→21:43)
--- NOTE | 2016-10-16 10:41 | Internal Med Progress Note ---
Date of Encounter: 10/16/16 Time of Encounter: 10:39 - Assessment and plan (1) Pyelonephritis Current Visit: Yes Status: Acute Assessment and plan: Reviewed pt's CT of abd / Pelvis Her CVA tenderness started improving..Resolved on Left still has mild CVA on Rt side d/c IVF cont empirical abx with Rocephin Will do PVR x once- to check for urinary retention Possible d/c home in AM once her nausea and Rt CVA tenderness improves (2) Cystitis Current Visit: Yes Status: Acute Assessment and plan: cont empirical abx Rocephin Urine cx growing - E. Coli (3) Seroma complicating a procedure Current Visit: Yes Status: Acute Assessment and plan: Reviewed CT of abd results showed 2.9 cm size loculated fluid collection.. no signs of infection due to recent Ventral hernial repair no further work up needed (4) History of recent surgery Current Visit: Yes Status: Acute (5) Hypertension Current Visit: No Status: Acute Assessment and plan: stable with home meds Qualifiers: Hypertension type: essential hypertension Qualified Code(s): I10 - Essential (primary) hypertension (6) DVT, lower extremity Current Visit: No Status: Chronic Assessment and plan: on chronic home med Eliquis 5mg BID Qualifiers: Qualified Code(s): I82.409 - Acute embolism and thrombosis of unspecified deep veins of unspecified lower extremity (7) COPD (chronic obstructive pulmonary disease) Current Visit: Yes Status: Acute Assessment and plan: stable not in exacerbation resumed home INH Qualifiers: COPD type: COPD with acute exacerbation Qualified Code(s): J44.1 - Chronic obstructive pulmonary disease with (acute) exacerbation (8) History of pulmonary embolism Current Visit: No Status: Acute Assessment and plan: on Eliquis home med - Subjective Interval history: Ms. Bashir is a 61 year old female with hypertension, COPD, CHF, history of DVTs and PEs, presented to the emergency department today with complaints of nausea vomiting and abdominal pain. Patient reportedly had a hernia repair with mesh 3 weeks ago. She reports that approximately 2 weeks ago she started feeling tired, had a poor appetite, upper respiratory infection, and had a dull throbbing pain on her left side. Her symptoms progressed to include nausea and vomiting, the abdominal pain migrated to her mid abdomen and right abdomen and she had chills and sweats as well. She reports she has urinary frequency and urgency. Pt was started on IV abx and IVF. She feels better today. Afebrile. No CP / SOB. Her b/l flank pain also better.. resolved on left but still has some pain on Rt - Constitutional Vitals: Temp Pulse Resp BP Pulse Ox 97.8 F 63 16 117/71 90 10/16/16 06:53 10/16/16 06:53 10/16/16 08:04 10/16/16 06:53 10/16/16 08:04 General appearance: Present: A&O X 3, morbidly obese, pleasant, no acute distress - Respiratory Respiratory exam: Present: decreased breath sounds. Absent: accessory muscle use, rales, rhonchi, wheezes - Cardiovascular Cardiovascular exam: Present: RRR, +S1, +S2. Absent: diastolic murmur, gallop, rubs, systolic murmur - GI/Abdominal GI/Abdominal exam: Present: normal bowel sounds, soft. Absent: distended, tenderness - Back Exam Back exam: Present: CVA tenderness (R). Absent: CVA tenderness (L), vertebral tenderness - Psychiatric Psychiatric exam: Present: normal affect, normal mood Internal Medicine: Result - Labs CBC & Chem 7: 10/16/16 04:30 10/16/16 04:30 Labs: Short CBC 10/16/16 Range/Units 04:30 WBC 5.7 (4.3-11.1) K/mcL Hgb 11.8 (11.5-15.4) g/dL Hct 37.0 (35.3-44.9) % Plt Count 236 (140-400) K/mcL Neutrophils # 3.4 (1.6-8.9) K/mcL BMP 10/16/16 04:30 Sodium 141 Potassium 4.4 Chloride 106 Carbon Dioxide 30 H BUN 12 Creatinine 0.73 Glucose 115 H Calcium 8.6 Consult Discharge Plan - Plan Referrals: Raymon Rogel MD [Non-Partnered Physician] -
[2016-10-16] MEDS: traZODone 50 MG TABLET PO SCH (20:05)
[2016-10-17] MEDS: Acetaminophen 325 MG TABLET PO PRN (04:49)
[2016-10-17] MEDS: APIXABAN 5 MG TABLET PO SCH (07:37)
[2016-10-17 10:50] VITALS: BP 114/74
[2016-10-17] MEDS: Budesonide/Formoterol 160/4.5 MDI IH SCH (10:57)
--- NOTE | 2016-10-17 11:34 | Discharge Summary ---
Date of Encounter: 10/17/16 Time of Encounter: 11:31 - Discharge Diagnosis (1) Pyelonephritis Priority: Primary Status: Acute (2) Cystitis Priority: Primary Status: Acute (3) Seroma complicating a procedure Priority: Secondary Status: Acute (4) History of recent surgery Priority: Secondary Status: Acute (5) Hypertension Priority: Secondary Status: Acute Qualifiers: Hypertension type: essential hypertension Qualified Code(s): I10 - Essential (primary) hypertension (6) DVT, lower extremity Priority: Secondary Status: Chronic Qualifiers: Qualified Code(s): I82.409 - Acute embolism and thrombosis of unspecified deep veins of unspecified lower extremity (7) COPD (chronic obstructive pulmonary disease) Priority: Secondary Status: Acute Qualifiers: COPD type: COPD with acute exacerbation Qualified Code(s): J44.1 - Chronic obstructive pulmonary disease with (acute) exacerbation (8) History of pulmonary embolism Priority: Secondary Status: Acute - Discharge Medications Prescriptions: OxyCODONE/APAP 7.5/325 [Percocet 7.5/325 MG] 1 tab PO Q6H PRN #15 PRN Reason: pain not relieved by Tylenol Sulfamethoxazole/Trimeth DS [Bactrim DS] 1 each PO BID #8 tablet Home Medications: Metoprolol [Lopressor] 50 mg PO BID 11/30/14 [History] traZODone [TraZODone] 50 mg PO HS 11/30/14 [History] Citalopram [CeleXA] 20 mg PO DAILY 06/05/15 [History] Acetaminophen [Tylenol] 650 mg PO Q6HR PRN #0 tablet 09/23/16 [Rx] Apixaban [Eliquis] 5 mg PO BID #60 tablet 10/06/16 [Rx] Oxygen 3 l NS AD 10/14/16 [History] OxyCODONE/APAP 7.5/325 [Percocet 7.5/325 MG] 1 tab PO Q6H PRN #15 10/17/16 [Rx] Sulfamethoxazole/Trimeth DS [Bactrim DS] 1 each PO BID #8 tablet 10/17/16 [Rx] Allergies/Adverse Reactions: Allergies levofloxacin [From Levaquin] Allergy (Verified 10/14/16 09:56) Itching Date of admission: 10/14/16 15:18 Primary care physician: PCP NO - Patient Status Disposition: Home, Self-Care Condition: Good Overall status at discharge: patient is back to baseline - Discharge Instructions Follow Up With: Raymon Rogel MD [Non-Partnered Physician] - - Diet and Activity Activity: increase activity as tolerated Diet: advance to your usual diet Hospital course: Ms. Bashir is a 61 year old female with hypertension, COPD, CHF, history of DVTs and PEs, presented to the emergency department today with complaints of nausea vomiting and abdominal pain. Patient reportedly had a hernia repair with mesh 3 weeks ago. She reports that approximately 2 weeks ago she started feeling tired, had a poor appetite, upper respiratory infection, and had a dull throbbing pain on her left side. Her symptoms progressed to include nausea and vomiting, the abdominal pain migrated to her mid abdomen and right abdomen and she had chills and sweats as well. She reports she has urinary frequency and urgency. Pt was admitted in the hospital and started her on empirical IV abx with IV fluids. Her symptoms started improving slowly, her Rt CVA tenderness completely resolved. Her appetite is also better and urinary frequency also decreased. So will d/c her home in stable condition with PO abx Bactrim for another 4 days total 7 days of abx therapy. - Time Spent with Patient Total time spent providing and/or coordinating discharge services: - Constitutional Vitals: Temp Pulse Resp BP Pulse Ox 98.2 F 63 17 114/74 95 10/17/16 10:49 10/17/16 10:49 10/17/16 10:49 10/17/16 10:49 10/17/16 10:49 General appearance: Present: A&O X 3, morbidly obese, pleasant, no acute distress - Respiratory Respiratory exam: Present: CTAB. Absent: accessory muscle use, rales, rhonchi, wheezes - Cardiovascular Cardiovascular exam: Present: RRR, +S1, +S2. Absent: diastolic murmur, gallop, rubs, systolic murmur - GI/Abdominal GI/Abdominal exam: Present: distended, normal bowel sounds, soft. Absent: guarding, tenderness - Back Exam Back exam: Absent: CVA tenderness (L), CVA tenderness (R), tenderness, vertebral tenderness - Psychiatric Psychiatric exam: Present: normal affect, normal mood
== END 2016-10-17 13:15 | disposition home or self-care (01) | DRG 463 ==
LOC: 3ANU 09:42 → EMEROO 09:42 → 3ANU 14:31
PROVIDERS: ADMIT Internal Medicine; ATTEND Family Medicine

== ENCOUNTER 2018-11-06 21:25 | Inpatient (IN) ==
[2018-11-06] MEDS ORDERED: Ondansetron 4 MG/2 ML VIAL IVP STA (21:57)
[2018-11-06] MEDS ORDERED: 0.9 % Sodium Chloride 1,000 ML IVC ONE (21:57)
--- NOTE | 2018-11-06 21:58 | Emergency Department Note ---
Disposition Clinical Impression: Abdominal pain Qualifiers: Abdominal location: generalized Qualified Code(s): R10.84 - Generalized abdominal pain Disposition: Still a Patient Condition: Fair Referrals: Carlos Carranza MD [Primary Care Provider] - Time of Disposition: 00:22 Abdominal Pain HPI - General Stated Complaint: Abd Pain, Nausea Time Seen by Provider: 11/06/18 21:56 Source: patient, family Mode of arrival: ambulatory Limitations: no limitations Nursing Notes Reviewed: Yes Vital Signs Reviewed: Yes - History of Present Illness HPI Narrative: 63-year-old female past medical history of DVT and pulmonary embolism on Eliqui s, previous history of hernia repair multiple years ago presenting for a one-day history of gradually progressive worsening mid abdominal pain. The patient states that this morning she noticed that her anterior L hernia was getting larger and starting to become very painful causing her to have nausea without vomiting, patient states the pain became worse in nature spread throughout her abdomen and into her back states it was 10 out of 10 on the pain scale, patient has had no abnormal bleeding associated with this she said that she has gone to the bathroom 3 times today without difficulty she denies diarrhea or any other urinary/GI complaints. Patient has no lightheadedness dizzinessparesthesia is no chest pain or shortness of breath. No other concerns or complaints at this time. Upon my initial evaluation, my general impression is that the patient is quite uncomfortable due to her pain. She is otherwise awake, alert, oriented, engaged to conversation and answering questions appropriately. There are no overt lateralizing signs, the patient is in no acute distress; their skin appears to be normal in color, they are not pale, not cyanotic, and not diaphoretic, they are sitting up in hospital bed interacting appropriately with environment. Pt Subjective Complaint: abdominal pain Onset (ago): day(s) Consistency: Worsening Location: periumbilical Pain Severity: severe Pain Scale: 10 Quality: fullness, sharp Radiation: none Migration to: no migration Improves with: nothing Worsens with: movement Associated symptoms: Reports: nausea Treatments prior to arrival: none - Related Data Home Medications Medication Instructions Recorded Confirmed RX: Metoprolol [Lopressor] 50 mg PO BID 11/30/14 10/15/18 RX: traZODone [TraZODone] 50 mg PO HS 11/30/14 10/15/18 RX: Escitalopram [Lexapro] 20 mg PO DAILY 10/19/17 10/15/18 Previous Rx's Medication Instructions Recorded RX: Apixaban [Eliquis] 5 mg PO BID #60 tablet 10/15/18 Allergies Allergy/AdvReac Type Severity Reaction Status Date / Time levofloxacin [From Levaquin] Allergy Itching Verified 10/15/18 12:06 Review of Systems: *See History of Present Illness for more detail Constitutional: Denies: fever, chills Cardiovascular: Denies: chest pain Respiratory: Denies: dyspnea, cough, hemoptysis Gastrointestinal: Admits: abdominal pain, nausea, denies: vomiting, diarrhea, constipation, hematemesis, melena, hematochezia Genitourinary: Denies: hematuria Musculoskeletal: Denies: back pain, neck pain Neurological: Denies: headache, weakness, lightheadedness/dizziness, numbness, paresthesias, difficulty with ambulation. Endocrine: Denies: fatigue All systems ED: reviewed and negative except as stated. 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 Neck: Trachea midline without deviation. Anterior neck is supple without swelling, no overt thyromegaly noted. Chest: Symmetric chest wall rise Heart: Cardiac rhythm and rate are regular with S1 and S2 , no S3 or S4 appreciated, no murmurs, rubs, or clicks. Lungs: Lungs are clear to auscultation bilaterally, without accessory muscle use or prolonged expiratory phase. No wheezes, rhonchi, rales or stridor appreciated. *Abdomen: There is a large baseball-sized protrusion noted in the mid abdomen just below the umbilicus, there is significant pain to palpation and this is not easily reduced. There is diffuse abdominal tenderness without perineal signs. Abdomen is otherwise obese, soft to palpation, normal bowel sounds, no evidence of bruising, surgical incisions, or abnormal mass. No abdominal bruit ausculta jennifer. Non-distended, non-rigid, no organomegaly, no ascites appreciated. No pulsatile mass, no guarding to palpation in all four quadrants, no rebound Extremities: No evidence of pedal edema, joint swelling or erythema. Pulses/motor/sensory intact in all 4 extremities. Psychiatric exam: Patient displays a normal affect and mood for the environment. No overt signs of hallucination. Integumentary: warm, dry, intact, normal color. No rash, cyanosis, diaphoresis, erythema, or pallor - General Limitations: no limitations General appearance: alert, in no apparent distress Course Course Narrative: CT scan abdomen and pelvis without IV contrast Abdominal labs, urinalysis IV fluids, Dilaudid, Zofran for the management of patient's pain. I discussed my plan of care with patient and she verbalizes understanding and agreement with this plan. Vital Signs Temperature 98.2 F 11/06/18 22:40 Pulse Rate 92 11/06/18 22:40 Respiratory Rate 18 11/06/18 22:40 Blood Pressure 130/89 11/06/18 22:40 O2 Sat by Pulse Oximetry 95 11/06/18 22:40 Temperature 98.2 F 11/06/18 22:40 Pulse Rate 92 11/06/18 22:40 Respiratory Rate 18 11/06/18 22:40 Blood Pressure 130/89 11/06/18 22:40 O2 Sat by Pulse Oximetry 95 11/06/18 22:40 Oxygen Delivery Oxygen Delivery Room Air Abdominal Pain - MDM Narrative Medical decision making narrative: Patient care was signed out to overnight physician staff of Dr. Fair and Dr. De La Cruz. Please see mentation by these physicians for further evaluation, management, and final disposition. The patient is hemodynamically stable at the time of transfer of care. - Lab Data Lab results reviewed: Yes I reviewed the patient's lab results. Result diagrams: 11/06/18 22:08 11/06/18 22:08 Lab Results 11/06/18 11/06/1811/06/19 Range/Units 21:32 22:08 22:08 WBC 9.6 (4.3-11.1) K/mcL RBC 4.53 (3.82-4.97) M/mcL Hgb 14.6 (11.5-15.4) g/dL Hct 44.1 (35.3-44.9) % MCV 97.4 (83.0-100.0) fL MCH 32.2 (28.0-33.3) pg MCHC 33.1 (31.6-35.5) g/dL RDW 12.5 (11.5-14.5) % Plt Count 263 (140-400) K/mcL MPV 9.5 (9.4-12.4) fL Immature Gran % 0.3 (0-4) % Seg Neutrophils % 67.3 % Lymphocytes % 22.6 % Monocytes % 7.6 % Eosinophils % 1.9 % Basophils % 0.3 % Neutrophils # 6.4 (1.6-8.9) K/mcL Lymphocytes # 2.2 (0.6-4.6) K/mcL Monocytes # 0.7 (0.0-1.3) K/mcL Eosinophils # 0.2 (0.0-0.6) K/mcL Basophils # 0.0 (0.0-0.2) K/mcL Sodium 140 (136-145) mEq/L Potassium 3.8 (3.5-5.1) mEq/L Chloride 108 H (98-107) mEq/L Carbon Dioxide 25 (23-29) mEq/L BUN 16 (8-23) mg/dL Creatinine 0.70 (0.60-1.20) mg/dL Est GFR ( Amer) > 60 (> 60) Est GFR (Non-Af Amer) > 60 (> 60) BUN/Creatinine Ratio 23 (6-26) Glucose 128 H (70-105) mg/dL Calculated Osmolality 293 (280-300) Calcium 8.9 (8.6-10.3) mg/dL Total Bilirubin 0.3 (0.3-1.0) mg/dL Direct Bilirubin 0.0 (0.0-0.2) mg/dL Indirect Bilirubin 0.3 (0.0-1.2) mg/dL AST 10 L (13-39) Units/L ALT 7 (7-52) Units/L Alkaline Phosphatase 69 (34-104) Units/L Serum Total Protein 6.1 L (6.4-8.9) g/dL Albumin 3.6 (3.5-5.7) g/dL Globulin 2.5 (2.4-3.5) g/dL Albumin/Globulin Ratio 1.4 (1.1-2.2) Lipase (11-82) Units/L Urine Color Yellow (Yellow) Urine Clarity Clear (Clear) Urine pH 5.5 (5.0-8.0) pH Units Ur Specific [place] 1.020 (1.010-1.025) Urine Protein Negative (Neg-Trace) mg/dL Urine Glucose (UA) Normal (Normal) mg/dL Urine Ketones Negative (Negative) mg/dL Urine Blood Negative (Negative) Urine Nitrite Negative (Negative) Urine Bilirubin Negative (Negative) Urine Urobilinogen Normal (Normal) mg/dL Ur Leukocyte Esterase Negative (Negative) Ur Culture Indicated? NO (NO) 11/06/18 Range/Units 22:08 WBC (4.3-11.1) K/mcL RBC (3.82-4.97) M/mcL Hgb (11.5-15.4) g/dL Hct (35.3-44.9) % MCV (83.0-100.0) fL MCH (28.0-33.3) pg MCHC (31.6-35.5) g/dL RDW (11.5-14.5) % Plt Count (140-400) K/mcL MPV (9.4-12.4) fL Immature Gran % (0-4) % Seg Neutrophils % % Lymphocytes % % Monocytes % % Eosinophils % % Basophils % % Neutrophils # (1.6-8.9) K/mcL Lymphocytes # (0.6-4.6) K/mcL Monocytes # (0.0-1.3) K/mcL Eosinophils # (0.0-0.6) K/mcL Basophils # (0.0-0.2) K/mcL Sodium (136-145) mEq/L Potassium (3.5-5.1) mEq/L Chloride (98-107) mEq/L Carbon Dioxide (23-29) mEq/L BUN (8-23) mg/dL Creatinine (0.60-1.20) mg/dL Est GFR ( Amer) (> 60) Est GFR (Non-Af Amer) (> 60) BUN/Creatinine Ratio (6-26) Glucose (70-105) mg/dL Calculated Osmolality (280-300) Calcium (8.6-10.3) mg/dL Total Bilirubin (0.3-1.0) mg/dL Direct Bilirubin (0.0-0.2) mg/dL Indirect Bilirubin (0.0-1.2) mg/dL AST (13-39) Units/L ALT (7-52) Units/L Alkaline Phosphatase (34-104) Units/L Serum Total Protein (6.4-8.9) g/dL Albumin (3.5-5.7) g/dL Globulin (2.4-3.5) g/dL Albumin/Globulin Ratio (1.1-2.2) Lipase 28 (11-82) Units/L Urine Color (Yellow) Urine Clarity (Clear) Urine pH (5.0-8.0) pH Units Ur Specific [place] (1.010-1.025) Urine Protein (Neg-Trace) mg/dL Urine Glucose (UA) (Normal) mg/dL Urine Ketones (Negative) mg/dL Urine Blood (Negative) Urine Nitrite (Negative) Urine Bilirubin (Negative) Urine Urobilinogen (Normal) mg/dL Ur Leukocyte Esterase (Negative) Ur Culture Indicated? (NO) Attestation Statement - Attestation Attestation: I have seen this patient with the resident physician, I have personally evaluated this patient. I had reviewed the chart and document dictation by the resident physician and aM in agreement with the information documented by the resident physician. Please see documentation by the resident physician for complete chart including past medical history, family medical history, review of systems, current history and physical and laboratory and imaging studies. I was present for all procedures, provided direct supervision for all procedures, was present for the entirety of all procedures and provided direct guidance during the procedures. Please see documentation by the resident physician for any procedures performed. I have reviewed all interpretations of EKGs, and reviewed all EKGs performed on patient's as well. I have also reviewed reports of imaging as provided by radiology.
[2018-11-06 22:14] LABS: Bilirubin,Urine Negative (Negative); Blood,Urine Negative (Negative); Clarity,Urine Clear (Clear); Color,Urine Yellow (Yellow); Glucose,Urine (UA) Normal (Normal); Ketones,Urine Negative (Negative); Leukocyte Esterase,Urine Negative (Negative); Nitrite,Urine Negative (Negative); PH,Urine 5.5 pH Units (5.0-8.0); Protein,Urine Negative (Neg-Trace); Urobilinogen,Urine Normal (Normal)
[2018-11-06] MEDS ORDERED: Isovue-370 500 ML BOTTLE IVP ONE (22:19)
[2018-11-06] MEDS ORDERED: *HR* HYDROmorphone (PF) 1 MG/ML SYRINGE IVP ONE (22:19)
[2018-11-06 22:24] LABS: Basophils % 0.3 %; Eosinophils # 0.2 K/mcL (0.0-0.6); Eosinophils % 1.9 %; Hematocrit 44.1 % (35.3-44.9); Hemoglobin 14.6 g/dL (11.5-15.4); Immature Granulocytes % 0.3 % (0-4); Lymphocytes # 2.2 K/mcL (0.6-4.6); Lymphocytes % 22.6 %; Mean Corpuscular HGB Conc 33.1 g/dL (31.6-35.5); Mean Corpuscular Hemoglobin 32.2 pg (28.0-33.3); Mean Corpuscular Volume 97.4 fL (83.0-100.0); Mean Platelet Volume 9.5 fL (9.4-12.4); Monocytes # 0.7 K/mcL (0.0-1.3); Monocytes % 7.6 %; Neutrophils # 6.4 K/mcL (1.6-8.9); Platelet Count 263 K/mcL (140-400); Red Blood Count 4.53 M/mcL (3.82-4.97); Red Cell Distribution Width 12.5 % (11.5-14.5); Segmented Neutrophils % 67.3 %; White Blood Count 9.6 K/mcL (4.3-11.1)
[2018-11-06 22:39] LABS: Alanine Aminotransferase 7 Units/L (7-52); Albumin 3.6 g/dL (3.5-5.7); Albumin/Globulin Ratio 1.4 (1.1-2.2); Alkaline Phosphatase 69 Units/L (34-104); Aspartate Amino Transferase 10 Units/L (13-39); BUN/Creatinine Ratio 23 (6-26); Bilirubin,Indirect 0.3 mg/dL (0.0-1.2); Bilirubin,Total 0.3 mg/dL (0.3-1.0); Blood Urea Nitrogen 16 mg/dL (8-23); Calcium 8.9 mg/dL (8.6-10.3); Carbon Dioxide 25 mEq/L (23-29); Chloride 108 mEq/L (98-107); Globulin 2.5 g/dL (2.4-3.5); Glucose 128 mg/dL (70-105); Osmolality,Calculated 293 (280-300); Potassium 3.8 mEq/L (3.5-5.1); Sodium 140 mEq/L (136-145); Total Protein 6.1 g/dL (6.4-8.9); eGFR For African Americans > 60 (> 60); eGFR For Non-African Americans > 60 (> 60)
--- NOTE | 2018-11-06 23:17 | Emergency Department Note ---
Disposition Clinical Impression: Abdominal pain Qualifiers: Abdominal location: generalized Qualified Code(s): R10.84 - Generalized abdominal pain Disposition: Still a Patient Condition: Fair Referrals: Carlos Carranza MD [Primary Care Provider] - Time of Disposition: 00:23 Abdominal Pain HPI - General Chief Complaint: ED Abdominal Pain Stated Complaint: Abd Pain, Nausea Time Seen by Provider: 11/06/18 21:56 Source: patient Mode of arrival: ambulatory Limitations: no limitations Nursing Notes Reviewed: Yes Vital Signs Reviewed: Yes - History of Present Illness Pain Scale: 10 - Related Data Home Medications Medication Instructions Recorded Confirmed RX: Metoprolol [Lopressor] 50 mg PO BID 11/30/14 10/15/18 RX: traZODone [TraZODone] 50 mg PO HS 11/30/14 10/15/18 RX: Escitalopram [Lexapro] 20 mg PO DAILY 10/19/17 10/15/18 Previous Rx's Medication Instructions Recorded RX: Apixaban [Eliquis] 5 mg PO BID #60 tablet 10/15/18 Allergies Allergy/AdvReac Type Severity Reaction Status Date / Time levofloxacin [From Levaquin] Allergy Itching Verified 10/15/18 12:06 Abdominal Pain PMH - Past Medical History Medical history: Reports: cancer, CHF, COPD, DVT, GI bleed, hypertension, pulmonary embolus Female Surgical History: Reports: herniorrhaphy, hysterectomy, Tonsillectomy, 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, 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 Psychiatric history: Reports: anxiety, depression - Social History Smoking status: Current every day smoker Alcohol use: Reports: none Drug use: Reports: none Physical Exam - General Limitations: no limitations General appearance: alert Course Vital Signs Temperature 98.2 F 11/06/18 22:40 Pulse Rate 92 11/06/18 22:40 Respiratory Rate 18 11/06/18 22:40 Blood Pressure 130/89 11/06/18 22:40 O2 Sat by Pulse Oximetry 95 11/06/18 22:40 Temperature 98.2 F 11/06/18 22:40 Pulse Rate 92 11/06/18 22:40 Respiratory Rate 18 11/06/18 22:40 Blood Pressure 130/89 11/06/18 22:40 O2 Sat by Pulse Oximetry 95 11/06/18 22:40 Oxygen Delivery Oxygen Delivery Room Air Abdominal Pain - Lab Data Result diagrams: 11/06/18 22:08 11/06/18 22:08 Lab Results 11/06/18 11/06/18 11/06/18 Range/Units 21:32 22:08 22:08 WBC 9.6 (4.3-11.1) K/mcL RBC 4.53 (3.82-4.97) M/mcL Hgb 14.6 (11.5-15.4) g/dL Hct 44.1 (35.3-44.9) % MCV 97.4 (83.0-100.0) fL MCH 32.2 (28.0-33.3) pg MCHC 33.1 (31.6-35.5) g/dL RDW 12.5 (11.5-14.5) % Plt Count 263 (140-400) K/mcL MPV 9.5 (9.4-12.4) fL Immature Gran % 0.3 (0-4) % Seg Neutrophils % 67.3 % Lymphocytes % 22.6 % Monocytes % 7.6 % Eosinophils % 1.9 % Basophils % 0.3 % Neutrophils # 6.4 (1.6-8.9) K/mcL Lymphocytes # 2.2 (0.6-4.6) K/mcL Monocytes # 0.7 (0.0-1.3) K/mcL Eosinophils # 0.2 (0.0-0.6) K/mcL Basophils # 0.0 (0.0-0.2) K/mcL Sodium 140 (136-145) mEq/L Potassium 3.8 (3.5-5.1) mEq/L Chloride 108 H (98-107) mEq/L Carbon Dioxide 25 (23-29) mEq/L BUN 16 (8-23) mg/dL Creatinine 0.70 (0.60-1.20) mg/dL Est GFR ( Amer) > 60 (> 60) Est GFR (Non-Af Amer) > 60 (> 60) BUN/Creatinine Ratio 23 (6-26) Glucose 128 H (70-105) mg/dL Calculated Osmolality 293 (280-300) Calcium 8.9 (8.6-10.3) mg/dL Total Bilirubin 0.3 (0.3-1.0) mg/dL Direct Bilirubin 0.0 (0.0-0.2) mg/dL Indirect Bilirubin 0.3 (0.0-1.2) mg/dL AST 10 L (13-39) Units/L ALT 7 (7-52) Units/L Alkaline Phosphatase 69 (34-104) Units/L Serum Total Protein 6.1 L (6.4-8.9) g/dL Albumin 3.6 (3.5-5.7) g/dL Globulin 2.5 (2.4-3.5) g/dL Albumin/Globulin Ratio 1.4 (1.1-2.2) Lipase (11-82) Units/L Urine Color Yellow (Yellow) Urine Clarity Clear (Clear) Urine pH 5.5 (5.0-8.0) pH Units Ur Specific [place] 1.020 (1.010-1.025) Urine Protein Negative (Neg-Trace) mg/dL Urine Glucose (UA) Normal (Normal) mg/dL Urine Ketones Negative (Negative) mg/dL Urine Blood Negative (Negative) Urine Nitrite Negative (Negative) Urine Bilirubin Negative (Negative) Urine Urobilinogen Normal (Normal) mg/dL Ur Leukocyte Esterase Negative (Negative) Ur Culture Indicated? NO (NO) 11/06/18 Range/Units 22:08 WBC (4.3-11.1) K/mcL RBC (3.82-4.97) M/mcL Hgb (11.5-15.4) g/dL Hct (35.3-44.9) % MCV (83.0-100.0) fL MCH (28.0-33.3) pg MCHC (31.6-35.5) g/dL RDW (11.5-14.5) % Plt Count (140-400) K/mcL MPV (9.4-12.4) fL Immature Gran % (0-4) % Seg Neutrophils % % Lymphocytes % % Monocytes % % Eosinophils % % Basophils % % Neutrophils # (1.6-8.9) K/mcL Lymphocytes # (0.6-4.6) K/mcL Monocytes # (0.0-1.3) K/mcL Eosinophils # (0.0-0.6) K/mcL Basophils # (0.0-0.2) K/mcL Sodium (136-145) mEq/L Potassium (3.5-5.1) mEq/L Chloride (98-107) mEq/L Carbon Dioxide (23-29) mEq/L BUN (8-23) mg/dL Creatinine (0.60-1.20) mg/dL Est GFR ( Amer) (> 60) Est GFR (Non-Af Amer) (> 60) BUN/Creatinine Ratio (6-26) Glucose (70-105) mg/dL Calculated Osmolality (280-300) Calcium (8.6-10.3) mg/dL Total Bilirubin (0.3-1.0) mg/dL Direct Bilirubin (0.0-0.2) mg/dL Indirect Bilirubin (0.0-1.2) mg/dL AST (13-39) Units/L ALT (7-52) Units/L Alkaline Phosphatase (34-104) Units/L Serum Total Protein (6.4-8.9) g/dL Albumin (3.5-5.7) g/dL Globulin (2.4-3.5) g/dL Albumin/Globulin Ratio (1.1-2.2) Lipase 28 (11-82) Units/L Urine Color (Yellow) Urine Clarity (Clear) Urine pH (5.0-8.0) pH Units Ur Specific [place] (1.010-1.025) Urine Protein (Neg-Trace) mg/dL Urine Glucose (UA) (Normal) mg/dL Urine Ketones (Negative) mg/dL Urine Blood (Negative) Urine Nitrite (Negative) Urine Bilirubin (Negative) Urine Urobilinogen (Normal) mg/dL Ur Leukocyte Esterase (Negative) Ur Culture Indicated? (NO) Attestation Statement - Attestation Attestation: I have seen this patient with the resident physician, I have personally evaluated this patient. I had reviewed the chart and document dictation by the resident physician and aM in agreement with the information documented by the resident physician. Please see documentation by the resident physician for complete chart including past medical history, family medical history, review of systems, current history and physical and laboratory and imaging studies. I was present for all procedures, provided direct supervision for all procedures, was present for the entirety of all procedures and provided direct guidance during the procedures. Please see documentation by the resident physician for any procedures performed. I have reviewed all interpretations of EKGs, and reviewed all EKGs performed on patient's as well. I have also reviewed reports of imaging as provided by radiology. Patient presented emergency department with chief complaint of significant pain starting from a right-sided abdominal hernia with pain going into her back a little bit of nausea without vomiting without diarrhea but she has had 3 bowel movements today she is still passing gas. The patient states that she had a hernia surgery many years ago but states that in June or July of this year she noticed that she had a recurrence of a hernia, she is in the process of being referred back to her surgeon for this. She does also have a history of uterine cancer, states that she had talked to her cancer doctor about this and he was the wrong that referred her back to her surgeon. Patient states that she has never had pain like this before. She states all seems to stem from that hernia and states that the hernia seems significant family bigger today than it has in the past. She states it does not usually go away but states that today she could not get it to get smaller and it seemed way bigger than usual. Patient denies any headache neck pain chest pain shortness of breath dizziness weakness fevers or chills she denies any urinary symptoms. She denies any other acute concerns. On physical examination she is alert oriented 3 nontoxic in appearance but she is uncomfortable in appearance. Cranial nerves are intact. Oropharynx is normal. Lungs are clear. Heart is regular. Abdomen is nondistended soft, with palpation of the left side of the abdomen there is no significant referred pain. There is a large baseball-sized palpable hernia just inferior and lateral on the right of the umbilicus, there is no warmth or erythema on the skin, however any palpation over the radius or significant pain and I cannot reduce this on exam. Upper abdomen is without obvious masses or hernias. Skin is warm dry without rash or petechiae. Patient had an IV placed she is given IV pain medication IV nausea medication. Basic laboratory studies were ordered and a CT scan of the abdomen pelvis was ordered. Basic laboratory studies were all within acceptable limits. CT scan at the time of this dictation was pending, I have signed this patient out to my colleague will follow-up on the CT scan, and contact surgery if necessary.
[2018-11-07] MEDS ORDERED: Ondansetron 4 MG/2 ML VIAL IVP ONE (02:20)
[2018-11-07] MEDS ORDERED: *HR* HYDROmorphone (PF) 1 MG/ML SYRINGE IVP ONE (02:20)
--- NOTE | 2018-11-07 02:46 | Emergency Department Note ---
Disposition Clinical Impression: Incarcerated hernia Abdominal pain Qualifiers: Abdominal location: generalized Qualified Code(s): R10.84 - Generalized abdominal pain Disposition: Admitted As Inpatient Condition: Fair Referrals: Carlos Carranza MD [Primary Care Provider] - Time of Disposition: 03:51 Abdominal Pain HPI - General Chief Complaint: ED Abdominal Pain Stated Complaint: Abd Pain, Nausea Time Seen by Provider: 11/06/18 21:56 Source: patient, family Mode of arrival: ambulatory - History of Present Illness HPI Narrative: Patient was signed out to me by Dr. Flores and Dr. Mora. Please refer to their history of present illness, ROS and physical exam for further information as well as MDM. Pt Subjective Complaint: abdominal pain Location: periumbilical Pain Severity: severe Pain Scale: 10 Quality: fullness, sharp Migration to: no migration Improves with: nothing Worsens with: movement Associated symptoms: Reports: nausea - Related Data Home Medications Medication Instructions Recorded Confirmed Metoprolol [Lopressor] 50 mg PO BID 11/30/14 10/15/18 traZODone [TraZODone] 50 mg PO HS 11/30/14 10/15/18 Escitalopram [Lexapro] 20 mg PO DAILY 10/19/17 10/15/18 Previous Rx's Medication Instructions Recorded Apixaban [Eliquis] 5 mg PO BID #60 tablet 10/15/18 Allergies Allergy/AdvReac Type Severity Reaction Status Date / Time levofloxacin [From Levaquin] Allergy Itching Verified 10/15/18 12:06 Abdominal Pain PMH - Past Medical History Medical history: Reports: cancer, CHF, COPD, DVT, GI bleed, hypertension, pulmonary embolus Female Surgical History: Reports: herniorrhaphy, hysterectomy, Tonsillectomy, o ther 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, 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 Psychiatric history: Reports: anxiety, depression - Social History Smoking status: Current every day smoker Alcohol use: Reports: none Drug use: Reports: none Physical Exam - General Limitations: no limitations General appearance: alert, in no apparent distress Course Vital Signs Temperature 98.2 F 11/06/18 22:40 Pulse Rate 92 11/06/18 22:40 Respiratory Rate 18 11/06/18 22:40 Blood Pressure 130/89 11/06/18 22:40 O2 Sat by Pulse Oximetry 95 11/06/18 22:40 Temperature 98.2 F 11/06/18 22:40 Pulse Rate 82 11/07/18 02:28 Respiratory Rate 17 11/07/18 02:28 Blood Pressure 144/91 11/07/18 02:28 O2 Sat by Pulse Oximetry 95 11/07/18 02:28 Oxygen Delivery Oxygen Delivery Room Air Abdominal Pain - MDM Narrative Medical decision making narrative: Patient is a 63-year-old female who is presenting with acute abdominal pain. Patient was signed out to me by the day team, and Dr. Mora. Per the patient has had 1 day of acute abdominal pain, near the area of her periumbilical hernia on the left side, she states that this feels very tense to her and she has had some nausea with difficulty stooling. It was signed out, the patient was to have a CT scan of her abdomen and pelvis, upon this results possible consult to surgery, patient does request to see Dr. Montana. On my examination, patient is in no acute distress, however does have significant tenderness to palpation on examination, the hernia is unable to be reduced. Laboratory work is unremarkable showing no leukocytosis. CT of the abdomen and pelvis was resulted which shows small bowel obstruction, appears to be mechanical secondary to hernia. I did discuss this patient with Dr. Montana, at 0300, he is to come into the ER to further evaluate the patient. Upon his evaluation, he is recommending a PT, PTT, states that the patient is on Eliquis. Patient admitted to Dr. Montana, surgery. - Medical Records Medical records reviewed: Yes I reviewed the patient's medical records. - Lab Data Lab results reviewed: Yes I reviewed the patient's lab results. Result diagrams: 11/06/18 22:08 11/06/18 22:08 Lab Results 11/06/18 11/06/18 11/06/18 Range/Units 21:32 22:08 22:08 WBC 9.6 (4.3-11.1) K/mcL RBC 4.53 (3.82-4.97) M/mcL Hgb 14.6 (11.5-15.4) g/dL Hct 44.1 (35.3-44.9) % MCV 97.4 (83.0-100.0) fL MCH 32.2 (28.0-33.3) pg MCHC 33.1 (31.6-35.5) g/dL RDW 12.5 (11.5-14.5) % Plt Count 263 (140-400) K/mcL MPV 9.5 (9.4-12.4) fL Immature Gran % 0.3 (0-4) % Seg Neutrophils % 67.3 % Lymphocytes % 22.6 % Monocytes % 7.6 % Eosinophils % 1.9 % Basophils % 0.3 % Neutrophils # 6.4 (1.6-8.9) K/mcL Lymphocytes # 2.2 (0.6-4.6) K/mcL Monocytes # 0.7 (0.0-1.3) K/mcL Eosinophils # 0.2 (0.0-0.6) K/mcL Basophils # 0.0 (0.0-0.2) K/mcL Sodium 140 (136-145) mEq/L Potassium 3.8 (3.5-5.1) mEq/L Chloride 108 H (98-107) mEq/L Carbon Dioxide 25 (23-29) mEq/L BUN 16 (8-23) mg/dL Creatinine 0.70 (0.60-1.20) mg/dL Est GFR ( Amer) > 60 (> 60) Est GFR (Non-Af Amer) > 60 (> 60) BUN/Creatinine Ratio 23 (6-26) Glucose 128 H (70-105) mg/dL Calculated Osmolality 293 (280-300) Calcium 8.9 (8.6-10.3) mg/dL Total Bilirubin 0.3 (0.3-1.0) mg/dL Direct Bilirubin 0.0 (0.0-0.2) mg/dL Indirect Bilirubin 0.3 (0.0-1.2) mg/dL AST 10 L (13-39) Units/L ALT 7 (7-52) Units/L Alkaline Phosphatase 69 (34-104) Units/L Serum Total Protein 6.1 L (6.4-8.9) g/dL Albumin 3.6 (3.5-5.7) g/dL Globulin 2.5 (2.4-3.5) g/dL Albumin/Globulin Ratio 1.4 (1.1-2.2) Lipase (11-82) Units/L Urine Color Yellow (Yellow) Urine Clarity Clear (Clear) Urine pH 5.5 (5.0-8.0) pH Units Ur Specific [place] 1.020 (1.010-1.025) Urine Protein Negative (Neg-Trace) mg/dL Urine Glucose (UA) Normal (Normal) mg/dL Urine Ketones Negative (Negative) mg/dL Urine Blood Negative (Negative) Urine Nitrite Negative (Negative) Urine Bilirubin Negative (Negative) Urine Urobilinogen Normal (Normal) mg/dL Ur Leukocyte Esterase Negative (Negative) Ur Culture Indicated? NO (NO) 11/06/18 Range/Units 22:08 WBC (4.3-11.1) K/mcL RBC (3.82-4.97) M/mcL Hgb (11.5-15.4) g/dL Hct (35.3-44.9) % MCV (83.0-100.0) fL MCH (28.0-33.3) pg MCHC (31.6-35.5) g/dL RDW (11.5-14.5) % Plt Count (140-400) K/mcL MPV (9.4-12.4) fL Immature Gran % (0-4) % Seg Neutrophils % % Lymphocytes % % Monocytes % % Eosinophils % % Basophils % % Neutrophils # (1.6-8.9) K/mcL Lymphocytes # (0.6-4.6) K/mcL Monocytes # (0.0-1.3) K/mcL Eosinophils # (0.0-0.6) K/mcL Basophils # (0.0-0.2) K/mcL Sodium (136-145) mEq/L Potassium (3.5-5.1) mEq/L Chloride (98-107) mEq/L Carbon Dioxide (23-29) mEq/L BUN (8-23) mg/dL Creatinine (0.60-1.20) mg/dL Est GFR ( Amer) (> 60) Est GFR (Non-Af Amer) (> 60) BUN/Creatinine Ratio (6-26) Glucose (70-105) mg/dL Calculated Osmolality (280-300) Calcium (8.6-10.3) mg/dL Total Bilirubin (0.3-1.0) mg/dL Direct Bilirubin (0.0-0.2) mg/dL Indirect Bilirubin (0.0-1.2) mg/dL AST (13-39) Units/L ALT (7-52) Units/L Alkaline Phosphatase (34-104) Units/L Serum Total Protein (6.4-8.9) g/dL Albumin (3.5-5.7) g/dL Globulin (2.4-3.5) g/dL Albumin/Globulin Ratio (1.1-2.2) Lipase 28 (11-82) Units/L Urine Color (Yellow) Urine Clarity (Clear) Urine pH (5.0-8.0) pH Units Ur Specific [place] (1.010-1.025) Urine Protein (Neg-Trace) mg/dL Urine Glucose (UA) (Normal) mg/dL Urine Ketones (Negative) mg/dL Urine Blood (Negative) Urine Nitrite (Negative) Urine Bilirubin (Negative) Urine Urobilinogen (Normal) mg/dL Ur Leukocyte Esterase (Negative) Ur Culture Indicated? (NO) - Radiology Data Radiology results reviewed: Yes I reviewed the patient's radiology results. Abdomen/Pelvis CT 11/07/18 00:16 IMPRESSION: Mechanical small bowel obstruction due to a right paramidline infraumbilical ventral abdominal hernia containing intra-abdominal fat and small bowel with associated inflammatory stranding and fluid. Transition point in the exiting loop of terminal ileum just before the cecum with mild upstream dilatation of multiple loops of small bowel. Colonic diverticulosis. D/ / Dewey Moody / Dewey Moody Interpreting Provider: Dewey Moody
[2018-11-07 03:59] LABS: Prothrombin Time 10.9 Seconds (9.4-12.1)
--- NOTE | 2018-11-07 04:01 | General Surg History&Physical ---
Date of Encounter: 11/07/18 Time of Encounter: 03:30 History of Present Illness Chief complaint: abd pain, incarcerated periumbilical hernia HPI: Ms. Bashir is a 63 year old female referred to [facility] at the patient's request for further evaluation and treatment incarcerated periumbilical ventral hernia. Patient describes a slowly enlarging, pro gressively more painful/tender periumbilical hernia for which she was referred to my office, 11/15/18. In the last 24 hours the patient has developed an irreducible painful mass at the level of the umbilicus prompting her to present to the emergency department for further evaluation and treatment. The patient is complaining of nausea without emesis. No fever or chills. CT abdomen and pelvis, reviewed in the emergency department, shows a right paramedian infraumbilical ventral abdominal hernia containing fat and several loops of distended small bowel. Transition point along the exiting terminal ileum consistent with small bowel obstruction is described. Colonic diverticulosis is also noted. The hernia is not reducible and will require surgical intervention. Past medical history: Endometrial carcinoma, s/p transabdominal hysterectomy, [facility], May 2015. 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 (left lower extremity DVT 08/2011 with bilateral PE found by recurrent PE 12/2014). Patient also has a history of COPD, hypertension, depression and diverticulosis. Surgical history: Tonsillectomy with adenoidectomy; tubal ligation; transabd ominal hysterectomy 05/2015; repair of ventral incisional hernia with Covidien Symbotex 10 x 15 cm mesh prosthesis, 09/21/16; right lower extremity phlebectomy 10/27/17; right lower extremity phlebectomy 11/10/17. Colonoscopy, 09/01/15. Allergies: Levofloxacin Medications: Apixaban 5 mg by mouth twice a day Metoprolol 50 po BID Patient no longer taking trazodone or escitalopram Social history: Patient is a former smoker admitting to a pack per day for 40 years; she quit 04/2015; she denies any alcohol or illicit drug use. Menarche was at 13, menopause at 41. Family history: Father with metastatic lung cancer; hypertension; CVA. Mother with hypertension Physical examination: Obese, age-appropriate female resting comfortably in her hospital bed. The patient had been medicated with Dilaudid prior to my arrival. The patient is 1.6 m tall, 93.497 kg, BMI 36.5 The patient has remained afebrile, 98.2, hemodynamically stable. Pulse 75- 92, respiratory rate 1618 nonlabored; blood pressure 107/67 to 144/91. SPO2 92-95% on room air Skin is warm with no obvious jaundice Lungs: Clear bilaterally; no audible wheezes or rales. No obvious abdominal pain on deep inspiration Cardiac: Regular rate, no appreciable murmur Abdomen: Obese, soft, with a large readily palpable periumbilical/infraumbilical mass that was not reducible. It was tender to v igorous manipulation but there were no peritoneal signs. No rebound. Bowel sounds were hypoactive. Extremities: No obvious clubbing, cyanosis, or edema. Laboratories: WBC 9.6, hemoglobin 14.6 with hematocrit 44.1. Differential within normal limits. PT 10.9, INR 1.0 (patient chronically anticoagulated with Apixaban) Electrolytes, BUN, creatinine within normal limits, chloride is elevated at 108. LFTs were unremarkable Urinalysis was also unremarkable. CT abdomen and pelvis - reviewed in the ER. A small infraumbilical defect is apparent with several loops of small bowel prolapsing through the defect creating a larger subcutaneous mass. There are several loops of slightly dilated, fluid-filled proximal bowel consistent with an incarcerated hernia with SBO. Impression: Incarcerated periumbilical/infraumbilical recurrent ventral hernia with mechanical small bowel obstruction. The patient will require an exploratory celiotomy to reduce the hernia and release these obstructed small bowel. Risks of surgery include hemorrhage, infection, injury to adjacent structures, recurrent hernia, respiratory failure/pneumonia and cardiac risks such as dysrhythmia/HI. The patient expresses understanding of these risks. Surgical consent has been obtained. The patient is chronically anticoagulated for h/o recurrent PE using Apixaban. Other risk factors for surgery COPD due to detention tobacco use. Hypertension Plan: Admit, NPO, pain control and schedule surgery (exploratory celiotomy with release SBO) allow apixaban to reverse as the patient has not taken apixaban last evening. Past Med Surg Social Fam HX - Past Medical History Medical history: cancer, CHF, COPD, DVT, GI bleed, hypertension, pulmonary embolus Additional medical history: hx of blood clots in lungs Psychiatric history: anxiety, depression - Past Surgical History Surgical History: herniorrhaphy, hysterectomy, other Additional surgical history: tubal - Social History Smoking Status: Current every day smoker Smokeless Tobacco Status: No Alcohol use: none Drug use: none - Family History Father Living Status: Hx Family Cardiac Disorders: Yes Hx Family Cancer: Yes Mother Living Status: Still Living Hx Family Cardiac Disorders: Yes (HYPERTENSION.) Medications and Allergies Metoprolol [Lopressor] 50 mg PO BID 11/30/14 [History] traZODone [TraZODone] 50 mg PO HS 11/30/14 [History] Escitalopram [Lexapro] 20 mg PO DAILY 10/19/17 [History] Apixaban [Eliquis] 5 mg PO BID #60 tablet 10/15/18 [Rx] Allergy/AdvReac Type Severity Reaction Status Date / Time levofloxacin [From Levaquin] Allergy Itching Verified 10/15/18 12:06 Review of Systems All systems PM: The remainder of the systems were reviewed and are negative General Surgery Exam Initial Vital Signs Temp Pulse Resp BP Pulse Ox 98.2 F 92 18 130/89 95 11/06/18 22:40 11/06/18 22:40 11/06/18 22:40 11/06/18 22:40 11/06/18 22:40 Results - Labs 11/06/18 22:08 11/06/18 22:08 Abnormal lab results Chloride 108 mEq/L (98-107) H 11/06/18 22:08 Glucose 128 mg/dL (70-105) H 11/06/18 22:08 AST 10 Units/L (13-39) L 11/06/18 22:08 Serum Total Protein 6.1 g/dL (6.4-8.9) L 11/06/18 22:08 Diabetes panel 11/06/18 Range/Units 22:08 Sodium 140 (136-145) mEq/L Potassium 3.8 (3.5-5.1) mEq/L Chloride 108 H (98-107) mEq/L Carbon Dioxide 25 (23-29) mEq/L BUN 16 (8-23) mg/dL Creatinine 0.70 (0.60-1.20) mg/dL Glucose 128 H (70-105) mg/dL Calcium 8.9 (8.6-10.3) mg/dL AST 10 L (13-39) Units/L ALT 7 (7-52) Units/L Alkaline Phosphatase 69 (34-104) Units/L Albumin 3.6 (3.5-5.7) g/dL Calcium panel 11/06/18 Range/Units 22:08 Calcium 8.9 (8.6-10.3) mg/dL Albumin 3.6 (3.5-5.7) g/dL Pituitary panel 11/06/18 Range/Units 22:08 Sodium 140 (136-145) mEq/L Potassium 3.8 (3.5-5.1) mEq/L Chloride 108 H (98-107) mEq/L Carbon Dioxide 25 (23-29) mEq/L BUN 16 (8-23) mg/dL Creatinine 0.70 (0.60-1.20) mg/dL Glucose 128 H (70-105) mg/dL Calcium 8.9 (8.6-10.3) mg/dL Adrenal panel 11/06/18 Range/Units 22:08 Sodium 140 (136-145) mEq/L Potassium 3.8 (3.5-5.1) mEq/L Chloride 108 H (98-107) mEq/L Carbon Dioxide 25 (23-29) mEq/L BUN 16 (8-23) mg/dL Creatinine 0.70 (0.60-1.20) mg/dL Glucose 128 H (70-105) mg/dL Calcium 8.9 (8.6-10.3) mg/dL Total Bilirubin 0.3 (0.3-1.0) mg/dL AST 10 L (13-39) Units/L ALT 7 (7-52) Units/L Alkaline Phosphatase 69 (34-104) Units/L Albumin 3.6 (3.5-5.7) g/dL All other labs normal.
[2018-11-07 04:02] LABS: Activated Partial Thrombo Time 30.1 Seconds (26.0-36.0)
[2018-11-07] MEDS ORDERED: Ondansetron 4 MG/2 ML VIAL IVP PRN (04:06)
[2018-11-07] MEDS ORDERED: Ringers Solution, Lactated 1,000 ML IVC SCH ×2 (04:06→18:47)
[2018-11-07] MEDS: *HR* OxyCODONE Immed Rel 5 MG TABLET PO PRN ×4 (08:02→22:16)
--- NOTE | 2018-11-07 14:17 | Anesthesia Evaluation PreOp ---
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 Other Medical History: Other (OBESITY, ENDOMETRIAL CA) Anesthesia History: No Prior Anesthetic Complications, Past Anesthesia Alcohol Use: none Drug use: none Medications and Allergies Metoprolol [Lopressor] 50 mg PO BID 11/30/14 [History] Apixaban [Eliquis] 5 mg PO BID #60 tablet 10/15/18 [Rx] Allergy/AdvReac Type Severity Reaction Status Date / Time levofloxacin [From Levaquin] Allergy Itching Verified 10/15/18 12:06 - Meds/Allergy Pre-op Review Medications Reviewed: Yes (LAST ELLIQUIS >36 HRS AGO) Allergies Reviewed: Yes Beta Blockers on Current Med List: Yes If Beta Blockers taken, Date/Time (Last Dose taken): 0755 Anesthesia Results - Labs 11/06/18 22:08 11/06/18 22:08 Anesthesia Exam Vital Signs/O2 Sat/Glucose, Most Recent Temp Pulse Resp BP Pulse Ox 98.1 F 70 14 121/73 82 11/07/18 13:10 11/07/18 13:10 11/07/18 13:10 11/07/18 13:10 11/07/18 13:10 Blood Glucose* 108 Weight: 94 KG - BMI 37 NPO (# of Hours): 8 - HEENT Mallampati: II Teeth: Edentulous Denture Type: Upper: Complete - Cardiac Rhythm: Regular - Pulmonary Breath Sounds: bilateral Clear Anesthesia Assess/Plan ASA Score: 3 Anesthetic Plan: General Monitoring Plan: Standard Monitors Recovery Plan: PACU Anes Supervising Prov Stmt: WILL PLACE NGT IN HOLDING ROOM
[2018-11-07] MEDS ORDERED: *HR* FentaNYL (PF) 100 MCG/2 ML VIAL ONE (15:05)
[2018-11-07] MEDS ORDERED: *HR* Midazolam HCl 2 MG/2 ML VIAL ONE (15:05)
[2018-11-07] MEDS ORDERED: *HR* Propofol 200 MG/20 ML VIAL IVP ONE (15:05)
[2018-11-07] MEDS ORDERED: Dexamethasone 4 MG/ML VIAL ONE (15:06)
[2018-11-07] MEDS ORDERED: *HR* Rocuronium Bromide 50 MG/5 ML VIAL ONE ×2 (15:06→17:33)
[2018-11-07] MEDS ORDERED: Ondansetron 4 MG/2 ML VIAL ONE (15:06)
[2018-11-07] MEDS ORDERED: Lidocaine -MPF 2% 2 ML VIAL ONE (15:06)
[2018-11-07] MEDS ORDERED: Lidocaine HCL 4 ML Topical Solution (Laryng-O-Jet Kit Sterile Pak) TP ONE (15:09)
[2018-11-07] MEDS ORDERED: EPHEDrine 50 MG/ML VIAL ONE (16:15)
[2018-11-07] MEDS ORDERED: Bupivacaine/EPI 1:200k 0.5%PF 30 ML VIAL ONE (16:25)
[2018-11-07] MEDS ORDERED: *HR* HYDROMORPHONE 2 MG/ML VIAL ONE (17:45)
--- NOTE | 2018-11-07 17:56 | Operative Note ---
Date of procedure: 11/07/18 Pre-op diagnosis: incarcerated nancie umbilical ventral incisional hernia with SBO Post-op diagnosis: same Procedure: Exploratory celiotomy, lysis adhesions, release SBO; excision mesh prosthesis Complications: none apparent Anesthesia: GETA Local Anesthetics: 0.25% Sensorcaine HCL with Epinephrine 1:200,000 SubQ (cc) (20 mL) Surgeon: Hamlet Montana Was there an parking assistant present: No Estimated blood loss (cc): 25 IV fluids (cc): 1,400 Specimen: hernia sac and mesh prosthesis Procedure in Detail: Brief history: 63-year-old female referred after presenting to the emergency department with slowly enlarging, progressively more painful/tender periumbilical ventral incisional hernia. This represents a recurrent incisional hernia related to transabdominal hysterectomy completed at [facility] in May 2015. A ventral hernia repair with mesh was performed 09/21/16. The patient developed a recurrent hernia for which she had been referred to be seen in my office, 11/15/18. Unfortunately the patient developed a tender, irreducible periumbilical mass prompting her presentation to the emergency department. Evaluation was consistent with an incarcerated hernia with mechanical bowel obstruction. The patient was admitted for IV fluids, pain control, and surgery. Patient is anticoagulated with Apixaban. The interval between her presentation to the ED and surgery will allow the anticoagulation to reverse. Historical details and physical findings are available dictated H&P. Technique: Patient was brought to the operating room where she was placed supine on the procedure table. The patient was appropriately identified to person and procedure. The accuracy of this information was confirmed by the patient and procedure team. In the preoperative holding area anesthesia had placed an NG tube. This evacuated approximately 400 mL of watery bilious fluid. The patient was then intubated and anesthetized under the supervision of Dr Morales. Under anesthesia was able to reduce the hernia. The fascial defect measured approximately 4 cm in diameter. The abdomen was prepped and draped in usual sterile fashion. When the procedure team indicated their readiness, several milliliters of 0.25% bupivacaine with 1 100,000 units was infiltrated into the midline abdominal wall both cephalad and caudal to the umbilicus. A midline incision curving around the left side of the umbilicus was initiated with a #10 scalpel. Dissection was extended to the fascia. Bleeding points were controlled electrocautery. The hernia sac was identified and entered atraumatically. While there was no residual small bowel within the hernia sac several loops of small bowel were densely adherent to the anterior abdominal wall where the previous mass prosthesis had been placed. To facilitate visualization and dissection of this adherent small bowel there was necessary to extend the abdominal wall incision to the right of the umbilicus effectively excising the umbilicus. The hernia sac was dissected from the surrounding tissue. The small bowel was then mobilized from the mesh prosthesis used to repair the ventral incisional hernia in 2017. This was accomplished with no enterotomies. The mesh prosthesis was then excised. The hernia sac and mesh prosthesis were sent to pathology. The small bowel was examined from the ligament of Treitz to the ileocecal valve and appeared intact. The small bowel obstruction was effectively relieved. I opted to close the abdominal wall without another mesh prosthesis. 4 interrupted retention sutures, #2 Monosoft replaced through and through the anterior abdominal wall. The mesh was approximated in the midline using interrupted [id number] 0 Vicryl. Bupivacaine was infiltrated into the fascia. The subcutaneous tissue was approximated with running 3-0 Vicryl. The skin edges were approximated with chintan. The retention sutures were tied and secured in place. An abdominal binder was applied. The patient was taken to recovery in stable condition. Needle, sponge, and instrument counts were correct at the close of the case.
[2018-11-07] MEDS ORDERED: Ipratropium/Albuterol Neb 3 ML IH ONE (18:06)
--- NOTE | 2018-11-07 18:50 | Anesthesia Evaluation Post Op ---
Date of Encounter: 11/07/18 Time of Encounter: 18:30 - Vital Signs Vital Signs: Vital Signs/O2 Sat, Most Current Temp Pulse Resp BP Pulse Ox 97 F L 77 16 128/78 92 11/07/18 18:38 11/07/18 18:38 11/07/18 18:38 11/07/18 18:38 11/07/18 18:38 - Lungs Lungs: Clear Ascult./Percussion - Airway Airway: Non-obstructed - Cardiovascular Regular Rate - Mental Status Mental Status: Asleep with brisk response to light stimulation - Pain Pain Scale: 7 (asleep) Pain Scale used: Numeric (1 - 10) - Nausea Vomiting Nausea Vomiting: Not Present - Hydration Hydration: NPO, Has not voided - Discharge PostOp Status: Transfer Patient to floor
[2018-11-07] MEDS: *HR* Heparin 5,000 UNIT/ML VIAL SQ SCH (21:44)
[2018-11-07] MEDS: Ondansetron 4 MG/2 ML VIAL IVP PRN (22:17)
[2018-11-07] MEDS: Albuterol 2.5 MG/3 ML NEBULIZER IH SCH (22:35)
[2018-11-08] MEDS: Acetaminophen 325 MG TABLET PO PRN (02:20)
[2018-11-08] MEDS: Albuterol 2.5 MG/3 ML NEBULIZER IH SCH ×4 (04:02→21:42)
[2018-11-08 04:44] LABS: Basophils % 0.2 %; Hematocrit 43.9 % (35.3-44.9); Hemoglobin 14.4 g/dL (11.5-15.4); Immature Granulocytes % 0.4 % (0-4); Lymphocytes # 0.9 K/mcL (0.6-4.6); Lymphocytes % 8.2 %; Mean Corpuscular HGB Conc 32.8 g/dL (31.6-35.5); Mean Corpuscular Hemoglobin 32.4 pg (28.0-33.3); Mean Corpuscular Volume 98.9 fL (83.0-100.0); Mean Platelet Volume 9.5 fL (9.4-12.4); Monocytes # 0.7 K/mcL (0.0-1.3); Monocytes % 5.9 %; Neutrophils # 9.7 K/mcL (1.6-8.9); Platelet Count 279 K/mcL (140-400); Red Blood Count 4.44 M/mcL (3.82-4.97); Red Cell Distribution Width 12.6 % (11.5-14.5); Segmented Neutrophils % 85.3 %; White Blood Count 11.4 K/mcL (4.3-11.1)
[2018-11-08] MEDS: *HR* OxyCODONE Immed Rel 5 MG TABLET PO PRN ×2 (05:14→09:09)
[2018-11-08] MEDS: Ondansetron 4 MG/2 ML VIAL IVP PRN (05:14)
[2018-11-08] MEDS: *HR* Heparin 5,000 UNIT/ML VIAL SQ SCH (05:14)
[2018-11-08] MEDS ORDERED: *HR* OxyCODONE Immed Rel 5 MG TABLET PO PRN (10:55)
[2018-11-08] MEDS ORDERED: *HR* Promethazine 25 MG/ML VIAL IVP PRN (12:50)
--- NOTE | 2018-11-08 13:00 | General Surgery Progress Note ---
Date of Encounter: 11/08/18 Time of Encounter: 12:55 Subjective Narrative: General Surgery - POD #1 Patient feeling poorly due to nausea and anorexia. The patient is also complaining of generalized pruritus The patient denies significant incisional pain. The patient remains afebrile, currently 98.0, hemodynamically stable with pulse 61, respiratory rate 15-17 unlabored; blood pressure 105/67 l Lungs: Clear to auscultation; no obvious pain on deep inspiration; SPO2 85- 94% on room air Abdomen: Soft with incisional tenderness as expected. The midline incision is intact, clean and dry. Dressing removed. Hypoactive bowel sounds Urine output proximally 600 mL so far today Labs: WBC 11.4 with 9.7 neutrophils, most likely reaction to surgery Hemoglobin 14.4, hematocrit 43.9. Impression: Postoperative day 1, status post exploratory celiotomy with lysis of adhesions for incarcerated periumbilical, ventral incisional hernia Postoperative nausea and anorexia, possibly due to medications. Generalized pruritus History of recurrent PE - resume anticoagulation Plan: Diet as tolerated Add promethazine for control of nausea not relieved by ondansetron Continue IV fluids until oral intake improves Benadryl for control of pruritus Apixaban restarted today. Objective Vital Signs - Last 8 Hours Temp Pulse Resp BP Pulse Ox 11/08/18 10:56 98.0 F 61 17 105/67 85 11/08/18 07:20 97.8 F 71 17 110/76 92 Intake and Output 11/07/18 11/08/18 11/08/18 23:59 07:59 15:59 Intake Total 0 / 120 120 / 120 Output Total 125 / 125 300 / 600 300 / 600 Balance -125 / 1555 -300 / -480 -180 / -480 Intake: Oral 0 / 120 120 / 120 Output: Urine 100 / 100 300 / 600 300 / 600 Estimated Blood Loss 25 / 25 Other: Weight 96.7 kg Patient Weight 11/08/18 23:59 Weight 96.7 kg - Labs 11/08/18 04:13 11/06/18 22:08 Consult Discharge Plan - Plan Referrals: Carlos Carranza MD [Primary Care Provider] - Hamlet Montana MD [Non-Partnered Physician] -
[2018-11-08] MEDS: D5% in 0.45% NACL 1,000 ML IVC SCH (16:02)
[2018-11-08] MEDS ORDERED: Mag Hydrox/Al Hydrox/Simeth 30 ML UDC PO ONE (17:48)
[2018-11-08] MEDS: Apixaban 5 MG TABLET PO SCH (21:32)
[2018-11-09] MEDS: Acetaminophen 325 MG TABLET PO PRN (02:25)
[2018-11-09] MEDS: Albuterol 2.5 MG/3 ML NEBULIZER IH SCH ×4 (04:36→22:35)
[2018-11-09] MEDS: D5% in 0.45% NACL 1,000 ML IVC SCH ×2 (05:17→21:46)
[2018-11-09 06:10] LABS: Basophils % 0.1 %; Eosinophils # 0.2 K/mcL (0.0-0.6); Hematocrit 39.5 % (35.3-44.9); Hemoglobin 12.9 g/dL (11.5-15.4); Immature Granulocytes % 0.3 % (0-4); Lymphocytes # 1.8 K/mcL (0.6-4.6); Lymphocytes % 23.3 %; Mean Corpuscular HGB Conc 32.7 g/dL (31.6-35.5); Mean Corpuscular Hemoglobin 33.3 pg (28.0-33.3); Mean Corpuscular Volume 102.1 fL (83.0-100.0); Mean Platelet Volume 9.6 fL (9.4-12.4); Monocytes # 0.9 K/mcL (0.0-1.3); Monocytes % 10.8 %; Platelet Count 230 K/mcL (140-400); Red Blood Count 3.87 M/mcL (3.82-4.97); Red Cell Distribution Width 12.9 % (11.5-14.5); Segmented Neutrophils % 63.5 %; White Blood Count 7.9 K/mcL (4.3-11.1)
[2018-11-09 06:31] LABS: BUN/Creatinine Ratio 14 (6-26); Blood Urea Nitrogen 11 mg/dL (8-23); Calcium 8.2 mg/dL (8.6-10.3); Carbon Dioxide 29 mEq/L (23-29); Chloride 99 mEq/L (98-107); Glucose 114 mg/dL (70-105); Osmolality,Calculated 288 (280-300); Potassium 3.5 mEq/L (3.5-5.1); Sodium 139 mEq/L (136-145); eGFR For African Americans > 60 (> 60); eGFR For Non-African Americans > 60 (> 60)
[2018-11-09] MEDS: Apixaban 5 MG TABLET PO SCH ×2 (08:17→21:32)
--- NOTE | 2018-11-09 12:54 | General Surgery Progress Note ---
Date of Encounter: 11/09/18 Time of Encounter: 12:48 Subjective Patient reports: still having pain, no flatus, nausea Narrative: General Surgery - POD #2 Patient continues to complain of abdominal pain, nausea and anorexia. No emesis, fevers or chills. Patient "unable to eat anything" Patient remains afebrile, currently 98.2; hemodynamically stable with pulse 57 and 78; respirations 17-18; blood pressure 115/74. Lungs: Bibasilar rales. SPO2 94% with 3 L nasal cannula. Patient has a significant history of COPD Abdomen: Soft without obvious tenderness to palpation despite the patient's complaints. Active bowel sounds though no reported flatus. No BM. Midline incision appears intact and healing well. Urine output: 850 mL for the last 24 hours; 550 mL so far today Labs: WBC has returned to normal as have neutrophils. Hemoglobin 12.9 with hematocrit 39.5. Electrolytes, BUN, creatinine within normal limits; potassium borderline at 3.5. Impression: POD #2, s/p exploratory celiotomy with release of incarcerated ventral incisional hernia with mechanical bowel obstruction Persistent postoperative nausea and anorexia. History of recurrent PE; Apixaban resumed Plan: Continue to monitor Check AAS Supplement potassium Encourage activity OOB / ambulate Objective Vital Signs - Last 8 Hours Temp Pulse Resp BP Pulse Ox 11/09/18 11:06 98.2 F 78 17 115/74 94 11/09/18 08:00 94 11/09/18 07:52 98.2 F 57 18 113/73 95 11/09/18 05:11 105/67 Intake and Output 11/08/18 11/09/18 11/09/18 23:59 07:59 15:59 Intake Total 120 / 480 1000 / 1000 Output Total 250 / 550 300 / 550 Balance 120 / -370 750 / 450 -300 / 450 Intake: IV Fluids 1000 / 1000 D5% And 0.45% Nacl 1000 Ml Bag 1000 / 1000 1,000 ML @ 60 mls/hr IVC . [id number] ROSITA Rx#:[id number] Oral 120 / 480 0 / 0 Output: Urine 250 / 550 300 / 550 Other: Weight 100.5 kg Patient Weight 11/09/18 23:59 Weight 100.5 kg - Labs 11/09/18 05:23 11/09/18 05:23 Diabetes panel 11/09/18 Range/Units 05:23 Sodium 139 (136-145) mEq/L Potassium 3.5 (3.5-5.1) mEq/L Chloride 99 (98-107) mEq/L Carbon Dioxide 29 (23-29) mEq/L BUN 11 (8-23) mg/dL Creatinine 0.81 (0.60-1.20) mg/dL Glucose 114 H (70-105) mg/dL Calcium 8.2 L (8.6-10.3) mg/dL Calcium panel 11/09/18 Range/Units 05:23 Calcium 8.2 L (8.6-10.3) mg/dL Pituitary panel 11/09/18 Range/Units 05:23 Sodium 139 (136-145) mEq/L Potassium 3.5 (3.5-5.1) mEq/L Chloride 99 (98-107) mEq/L Carbon Dioxide 29 (23-29) mEq/L BUN 11 (8-23) mg/dL Creatinine 0.81 (0.60-1.20) mg/dL Glucose 114 H (70-105) mg/dL Calcium 8.2 L (8.6-10.3) mg/dL Adrenal panel 11/09/18 Range/Units 05:23 Sodium 139 (136-145) mEq/L Potassium 3.5 (3.5-5.1) mEq/L Chloride 99 (98-107) mEq/L Carbon Dioxide 29 (23-29) mEq/L BUN 11 (8-23) mg/dL Creatinine 0.81 (0.60-1.20) mg/dL Glucose 114 H (70-105) mg/dL Calcium 8.2 L (8.6-10.3) mg/dL Consult Discharge Plan - Plan Referrals: Carlos Carranza MD [Primary Care Provider] - 11/27/18 10:00 am Hamlet Montana MD [Non-Partnered Physician] -
[2018-11-09] MEDS: Ondansetron 4 MG/2 ML VIAL IVP PRN (14:42)
[2018-11-09] MEDS: *HR* OxyCODONE/APAP 5/325 TABLET PO PRN ×2 (14:42→21:31)
[2018-11-10] MEDS: D5% in 0.45% NACL 1,000 ML IVC SCH (01:13)
[2018-11-10] MEDS: Acetaminophen 325 MG TABLET PO PRN (01:14)
[2018-11-10] MEDS: Ondansetron 4 MG/2 ML VIAL IVP PRN (01:14)
[2018-11-10] MEDS: Albuterol 2.5 MG/3 ML NEBULIZER IH SCH ×2 (03:48→10:41)
[2018-11-10] MEDS: *HR* OxyCODONE/APAP 5/325 TABLET PO PRN (05:44)
[2018-11-10 07:17] VITALS: BP 132/89
[2018-11-10] MEDS: Apixaban 5 MG TABLET PO SCH (08:22)
--- NOTE | 2018-11-10 09:31 | General Surgery Progress Note ---
Date of Encounter: 11/10/18 Time of Encounter: 09:17 Subjective Patient reports: feels better, tolerating a regular diet, flatus Narrative: General Surgery - POD #3 Progrees Note / Discharge summary Patient feeling better; pain diminished, no further nausea. Patient passing flatus. Improved enteral intake with resolution of the nausea The patient remains afebrile, currently 97.7. Pulse 67-80, regular; respiratory rate 16-18 nonlabored; BP currently 132/89. Lungs: Bibasilar fine rales, likely baseline. Good inspiratory effort without obvious abdominal pain. SPO2 on 2 L per nasal cannula sustained at 95% Abdomen: Soft, minimal incisional tenderness. No intra-abdominal masses or rebound. Active bowel sounds. The midline incision is intact, clean and dry. Urine output - 850 mL for the last 24 hours Impression: Postoperative day #3, status post exploratory celiotomy, release of incarcerated ventral incisional hernia with accompanying SBO Satisfactory postoperative state. Nausea resolved. Patient now passing flatus and tolerating diet Plan discharge home. Outpatient follow-up, 11/15/18. Brief history: 63-year-old female, referred to me after presenting to the emergency department, 11/06/18 with a painful irreducible mass at the level of the umbilicus. Patient was nauseous without emesis. No fevers or chills. Clinical and radiologic findings were consistent with recurrent ventral incisional hernia which had become incarcerated with an associated small bowel obstruction. The hernia was not reducible prompting surgical consultation. The patient was seen and evaluated. I was not able to reduce the hernia. Surgery would become necessary. The patient was admitted to allow the patient's anticoagulation (Apixaban) to diminish with surgery planned and completed 11/07/18. The patient tolerated the procedure well which was completed without complication. Postoperatively the patient complained of nausea but no emesis. She remained afebrile and hemodynamically stable. Because of the nausea, oral intake was initially limited. This resolved slowly over the next several days. An acute abdominal series, 11/09/18 demonstrated normal-appearing bowel pattern with no evidence of persistent or recurrent SBO. Bibasilar atelectasis with left basilar airspace disease was described. The possibility of pneumonia was raised by the reading radiologist but this was not confirmed by clinical examination. The patient had sufficiently recovered to be discharged home on postoperative day 3, 11/10/18. Postoperative instructions include: Regular diet as tolerated Patient to continue home meds, including Apixaban Tylenol as needed for pain Restriction for Percocet 5/325, #16, one every 6 hours as needed for pain not relieved by [id number] medications Patient may shower, cleanse incision with soap and water Abdominal binder provided as an option for abdominal comfort. She may wear the binder or not. Activity as tolerated, lifting limited to less than 20 pounds Outpatient surgical follow-up, 11/15/18. Discharge diagnoses: Incarcerated, recurrent ventral incisional hernia History of recurrent PE; chronic anticoagulation (Apixaban) Chronic venous insufficiency COPD Hypertension; depression; diverticulosis coli Objective Vital Signs - Last 8 Hours Temp Pulse Resp BP Pulse Ox 11/10/18 07:06 97.7 F 67 16 132/89 95 11/10/18 03:55 97.8 F 79 16 121/76 95 Intake and Output 11/09/18 11/10/18 11/10/18 23:59 07:59 15:59 Output Total 300 / 850 Balance -300 / 150 Output: Urine 300 / 850 Other: Weight 97 kg Patient Weight 11/10/18 23:59 Weight 97 kg - Labs 11/09/18 05:23 11/09/18 05:23 Consult Discharge Plan - Plan Referrals: Carlos Carranza MD [Primary Care Provider] - 11/27/18 10:00 am Hamlet Montana MD [Non-Partnered Physician] -
--- NOTE | 2018-11-10 09:38 | Discharge Summary ---
Outpatient Proc Discharge Plan - Plan Additional Instructions: Regular diet as tolerated Patient to continue home meds, including Apixaban Tylenol as needed for pain Prestriction: Percocet 5/325, #16, one every 6 hours as needed for pain not relieved by [id number] medications Patient may shower, cleanse incision with soap and water Abdominal binder provided as an option for abdominal comfort. She may wear the binder or not. Activity as tolerated, lifting limited to less than [address] as long as she can brake immediately if necessary and not taking narcotic analgesics Outpatient surgical follow-up, 11/15/18. Prescriptions: OxyCODONE/APAP 5/325 [Percocet 5/325 MG] 1 each PO Q6H PRN 4 Days #16 tablet PRN Reason: pain not relieved by Tylenol Home Medications: Apixaban [Eliquis] 5 mg PO BID #60 tablet 10/15/18 [Rx] Metoprolol [Lopressor] 50 mg PO BID 11/08/18 [History] Acetaminophen [Tylenol] 650 mg PO Q6HR PRN tablet 11/10/18 [Rx] OxyCODONE/APAP 5/325 [Percocet 5/325 MG] 1 each PO Q6H PRN 4 Days #16 tablet 11/10/18 [Rx] Forms (Work/Release): ED Satisfaction Letter, Work/School Release
== END 2018-11-10 11:00 | disposition home or self-care (01) | DRG 337 ==
LOC: 3ANU 21:25 → EMEROOARM 21:25 → OBSVTOIN 11-07 03:52 → 3ANU 11-07 04:34
PROVIDERS: ADMIT Surgery; ATTEND Surgery

== ENCOUNTER 2021-11-07 19:00 | Inpatient (IN) ==
[2021-11-07 21:13] LABS: Influenza A PCR Negative (Negative); Influenza B PCR Negative (Negative); Resp. Syncytial Virus PCR Negative (Negative)
[2021-11-07 21:14] LABS: SARS-CoV-2 by PCR (In House) Positive (Negative)
[2021-11-07] MEDS ORDERED: EPINEPHrine 1 MG/ML VIAL IM PRN (21:39)
[2021-11-07] MEDS ORDERED: Ondansetron 4 MG/2 ML VIAL IVP PRN (21:39)
[2021-11-07] MEDS ORDERED: Acetaminophen 325 MG TABLET PO PRN (21:39)
[2021-11-07] MEDS ORDERED: methylPREDNISolone 125 MG/2 ML VIAL IVP PRN (21:39)
[2021-11-07 22:37] LABS: Basophils % 0.1 %; Eosinophils # 0.1 K/mcL (0.0-0.6); Eosinophils % 1.4 %; Hemoglobin 15.1 g/dL (11.5-15.4); Immature Granulocytes % 0.4 % (0-4); Lymphocytes # 0.5 K/mcL (0.6-4.6); Lymphocytes % 7.3 %; Mean Corpuscular HGB Conc 33.6 g/dL (31.6-35.5); Mean Corpuscular Hemoglobin 32.8 pg (28.0-33.3); Mean Corpuscular Volume 97.8 fL (83.0-100.0); Mean Platelet Volume 9.3 fL (9.4-12.4); Monocytes # 0.7 K/mcL (0.0-1.3); Monocytes % 9.3 %; Neutrophils # 5.8 K/mcL (1.6-8.9); Platelet Count 205 K/mcL (140-400); Red Cell Distribution Width 12.6 % (11.5-14.5); Segmented Neutrophils % 81.5 %; White Blood Count 7.1 K/mcL (4.3-11.1)
[2021-11-07 23:03] LABS: Alanine Aminotransferase 12 Units/L (7-52); Albumin 3.8 g/dL (3.5-5.7); Albumin/Globulin Ratio 1.5 (1.1-2.2); Alkaline Phosphatase 69 Units/L (34-104); Aspartate Amino Transferase 15 Units/L (13-39); BUN/Creatinine Ratio 15 (6-26); Bilirubin,Total 0.5 mg/dL (0.3-1.0); Blood Urea Nitrogen 15 mg/dL (8-23); Calcium 8.5 mg/dL (8.6-10.3); Carbon Dioxide 27 mEq/L (23-29); Chloride 99 mEq/L (98-107); Globulin 2.6 g/dL (2.4-3.5); Glucose 101 mg/dL (70-105); Osmolality,Calculated 279 (280-300); Potassium 4.4 mEq/L (3.5-5.1); Sodium 134 mEq/L (136-145); Total Protein 6.4 g/dL (6.4-8.9); Troponin I < 0.03 ng/mL (< 0.04); eGFR For African Americans > 60 (> 60); eGFR For Non-African Americans 57 (> 60)
[2021-11-07] MEDS ORDERED: Ipratropium/Albuterol Neb 3 ML IH ONE (23:08)
[2021-11-08 00:26] LABS: VBG HCO3 28 mEq/L (21-27); VBG PCO2 48 mmHg (41-51); VBG PH 7.37 pH Units (7.32-7.42); VBG PO2 54 mmHg (25-50)
[2021-11-08] MEDS ORDERED: Iopamidol - 370 500 ML MLS IVP ONE (00:31)
[2021-11-08] MEDS ORDERED: Ipratropium/Albuterol Neb 3 ML IH ONE (01:36)
[2021-11-08] MEDS ORDERED: Ondansetron 4 MG/2 ML VIAL IVP PRN (02:20)
[2021-11-08] MEDS ORDERED: Melatonin 3 MG TABLET PO PRN (02:20)
[2021-11-08] MEDS ORDERED: Naloxone 0.4 MG/ML INJ IVP PRN (02:20)
[2021-11-08] MEDS ORDERED: Saline Nasal Spray 44 ML BOTTLE NS PRN (03:15)
[2021-11-08] MEDS ORDERED: Chloraseptic Spray 177 ML BOTTLE MM PRN (03:15)
[2021-11-08] MEDS ORDERED: Saliva Stimulant 44.3ml BOTTLE PO PRN (03:15)
[2021-11-08] MEDS ORDERED: Benzonatate 100 MG CAPSULE PO PRN (03:15)
[2021-11-08] MEDS ORDERED: Calcium Gluconate 1gm/50mL 1 GM/50 ML BAG IVPB ONE (03:27)
[2021-11-08] MEDS: *HR* HYDROcodone/Acet 5/325 mg TABLET PO PRN (03:51)
[2021-11-08] MEDS: Ipratropium 1 PUFF INHALER IH SCH ×4 (04:02→22:01)
[2021-11-08] MEDS ORDERED: Remdesivir 200 MG in 0.9 % Sodium Chloride 100 ML IVPB ONE (05:00)
[2021-11-08 06:05] LABS: Basophils % 0.3 %; Eosinophils % 0.2 %; Hematocrit 46.6 % (35.3-44.9); Hemoglobin 15.3 g/dL (11.5-15.4); Immature Granulocytes % 0.5 % (0-4); Lymphocytes # 0.4 K/mcL (0.6-4.6); Lymphocytes % 6.6 %; Mean Corpuscular HGB Conc 32.8 g/dL (31.6-35.5); Mean Corpuscular Hemoglobin 32.8 pg (28.0-33.3); Mean Corpuscular Volume 99.8 fL (83.0-100.0); Mean Platelet Volume 9.8 fL (9.4-12.4); Monocytes # 0.2 K/mcL (0.0-1.3); Monocytes % 2.6 %; Neutrophils # 5.2 K/mcL (1.6-8.9); Platelet Count 219 K/mcL (140-400); Red Blood Count 4.67 M/mcL (3.82-4.97); Red Cell Distribution Width 12.8 % (11.5-14.5); Segmented Neutrophils % 89.8 %; White Blood Count 5.8 K/mcL (4.3-11.1)
[2021-11-08 06:14] LABS: INR 1.1; Prothrombin Time 12.7 Seconds (9.4-12.1)
[2021-11-08 06:17] LABS: Activated Partial Thrombo Time 31.4 Seconds (26.0-36.0)
[2021-11-08 06:41] LABS: Alanine Aminotransferase 10 Units/L (7-52); Albumin/Globulin Ratio 1.5 (1.1-2.2); Alkaline Phosphatase 72 Units/L (34-104); Aspartate Amino Transferase 16 Units/L (13-39); BUN/Creatinine Ratio 16 (6-26); Bilirubin,Total 0.4 mg/dL (0.3-1.0); Blood Urea Nitrogen 15 mg/dL (8-23); Calcium 9.2 mg/dL (8.6-10.3); Carbon Dioxide 23 mEq/L (23-29); Chloride 100 mEq/L (98-107); Globulin 2.7 g/dL (2.4-3.5); Glucose 205 mg/dL (70-105); Osmolality,Calculated 287 (280-300); Potassium 4.1 mEq/L (3.5-5.1); Sodium 135 mEq/L (136-145); Total Protein 6.7 g/dL (6.4-8.9); eGFR For African Americans > 60 (> 60); eGFR For Non-African Americans 60 (> 60)
[2021-11-08 06:42] LABS: Lactate Dehydrogenase 157 Units/L (140-271); Magnesium 1.9 mg/dL (1.6-2.6); Phosphorous 3.4 mg/dL (2.7-4.5)
[2021-11-08 06:44] LABS: Ferritin 130 ng/mL (10-120)
[2021-11-08] MEDS: Cholecalciferol (D-3) 1,000 UNIT (25MCG) TABLET PO SCH (08:33)
[2021-11-08] MEDS: Apixaban 5 MG TABLET PO SCH ×2 (08:33→21:00)
[2021-11-08] MEDS: Multivit/Ca/Min/Fe/FA 1 TAB TABLET PO SCH (08:33)
[2021-11-08] MEDS: Nicotine 21 MG PATCH.TD24 TD SCH (08:34)
[2021-11-08] MEDS: Furosemide 20 MG/2 ML VIAL IVP SCH (08:36)
[2021-11-08 08:37] LABS: C-Reactive Protein 32 mg/L (Less than 10)
[2021-11-08] MEDS ORDERED: Chlorhexidine Rinse 15 ML MOUTHWASH MM SCH (09:00)
[2021-11-08] MEDS ORDERED: Multivit/Ca/Min/Fe/FA 1 TAB TABLET PO SCH (09:00)
[2021-11-08] MEDS: Budesonide/Formoterol 160/4.5 1 PUFF INH IH SCH ×2 (10:10→22:01)
[2021-11-08] MEDS: Artificial Tears SOLN 15 ML BOTTLE BOTH EYES SCH ×2 (14:24→21:01)
[2021-11-08] MEDS: Acetaminophen 325 MG TABLET PO PRN (17:32)
[2021-11-08] MEDS ORDERED: traZODone 50 MG TABLET PO PRN (19:00)
[2021-11-09 03:03] LABS: Hematocrit 44.9 % (35.3-44.9); Hemoglobin 14.8 g/dL (11.5-15.4); Immature Granulocytes % 0.5 % (0-4); Lymphocytes # 0.8 K/mcL (0.6-4.6); Mean Corpuscular Hemoglobin 32.2 pg (28.0-33.3); Mean Corpuscular Volume 97.8 fL (83.0-100.0); Mean Platelet Volume 9.9 fL (9.4-12.4); Monocytes # 0.8 K/mcL (0.0-1.3); Monocytes % 13.9 %; Neutrophils # 4.1 K/mcL (1.6-8.9); Platelet Count 238 K/mcL (140-400); Red Blood Count 4.59 M/mcL (3.82-4.97); Red Cell Distribution Width 12.7 % (11.5-14.5); Segmented Neutrophils % 71.6 %; White Blood Count 5.8 K/mcL (4.3-11.1)
[2021-11-09 03:17] LABS: Alanine Aminotransferase 13 Units/L (7-52); Albumin 3.8 g/dL (3.5-5.7); Albumin/Globulin Ratio 1.4 (1.1-2.2); Alkaline Phosphatase 63 Units/L (34-104); Aspartate Amino Transferase 16 Units/L (13-39); BUN/Creatinine Ratio 24 (6-26); Bilirubin,Total 0.3 mg/dL (0.3-1.0); Blood Urea Nitrogen 21 mg/dL (8-23); Calcium 8.7 mg/dL (8.6-10.3); Carbon Dioxide 28 mEq/L (23-29); Chloride 102 mEq/L (98-107); Globulin 2.7 g/dL (2.4-3.5); Glucose 145 mg/dL (70-105); Osmolality,Calculated 294 (280-300); Potassium 4.3 mEq/L (3.5-5.1); Sodium 139 mEq/L (136-145); Total Protein 6.5 g/dL (6.4-8.9); eGFR For African Americans > 60 (> 60); eGFR For Non-African Americans > 60 (> 60)
[2021-11-09] MEDS: Remdesivir 100 MG in 0.9 % Sodium Chloride 100 ML IVPB SCH (03:35)
[2021-11-09] MEDS: Acetaminophen 325 MG TABLET PO PRN (03:36)
[2021-11-09] MEDS: Ipratropium 1 PUFF INHALER IH SCH ×4 (07:47→22:39)
[2021-11-09] MEDS: Artificial Tears SOLN 15 ML BOTTLE BOTH EYES SCH ×2 (09:56→20:23)
[2021-11-09] MEDS: Furosemide 20 MG/2 ML VIAL IVP SCH (09:56)
[2021-11-09] MEDS: Apixaban 5 MG TABLET PO SCH ×2 (09:57→20:23)
[2021-11-09] MEDS: Nicotine 21 MG PATCH.TD24 TD SCH (09:57)
[2021-11-09] MEDS: Cholecalciferol (D-3) 1,000 UNIT (25MCG) TABLET PO SCH (09:57)
[2021-11-09] MEDS: Multivit/Ca/Min/Fe/FA 1 TAB TABLET PO SCH (09:57)
[2021-11-09] MEDS: Budesonide/Formoterol 160/4.5 1 PUFF INH IH SCH ×2 (11:00→22:39)
[2021-11-09] MEDS: *HR* HYDROcodone/Acet 5/325 mg TABLET PO PRN (19:43)
[2021-11-10 03:23] LABS: Hematocrit 46.3 % (35.3-44.9); Hemoglobin 15.2 g/dL (11.5-15.4); Mean Corpuscular HGB Conc 32.8 g/dL (31.6-35.5); Mean Corpuscular Hemoglobin 32.3 pg (28.0-33.3); Mean Corpuscular Volume 98.3 fL (83.0-100.0); Platelet Count 243 K/mcL (140-400); Red Blood Count 4.71 M/mcL (3.82-4.97); Red Cell Distribution Width 12.9 % (11.5-14.5); White Blood Count 7.1 K/mcL (4.3-11.1)
[2021-11-10] MEDS: Ipratropium 1 PUFF INHALER IH SCH ×3 (03:25→16:23)
[2021-11-10] MEDS: Remdesivir 100 MG in 0.9 % Sodium Chloride 100 ML IVPB SCH (03:26)
[2021-11-10 03:41] LABS: Calcium 8.7 mg/dL (8.6-10.3); Potassium 4.3 mEq/L (3.5-5.1)
[2021-11-10 05:09] VITALS: PULSE 60
[2021-11-10] MEDS: Apixaban 5 MG TABLET PO SCH (10:18)
[2021-11-10] MEDS: Furosemide 20 MG/2 ML VIAL IVP SCH (10:19)
[2021-11-10] MEDS: Multivit/Ca/Min/Fe/FA 1 TAB TABLET PO SCH (10:19)
[2021-11-10] MEDS: Cholecalciferol (D-3) 1,000 UNIT (25MCG) TABLET PO SCH (10:19)
[2021-11-10] MEDS: Nicotine 21 MG PATCH.TD24 TD SCH (10:22)
[2021-11-10] MEDS: Artificial Tears SOLN 15 ML BOTTLE BOTH EYES SCH (10:22)
[2021-11-10] MEDS: Budesonide/Formoterol 160/4.5 1 PUFF INH IH SCH (10:28)
[2021-11-10 11:26] VITALS: TEMP 98.4
[2021-11-10 11:44] VITALS: O2SAT 93
[2021-11-10 11:45] VITALS: BP 128/81
[2021-11-10] MEDS: Acetaminophen 325 MG TABLET PO PRN (14:13)
== END 2021-11-10 16:33 | disposition home or self-care (01) | DRG 177 ==
LOC: 2NENU 19:00 → EMEROOARM 19:00 → SUATTDRO 11-08 01:48 → 2NENU 11-08 03:20 → SUATTDRO 11-08 05:11
PROVIDERS: ADMIT Internal Medicine; ATTEND Student in an Organized Health Care Education/Training Program